=== PATIENT | male | born 2005 | race Caucasian/White ===

== ENCOUNTER 2025-05-21 20:56 | Emergency (ER) | payer OTHER, SELFPAY ==
--- NOTE | ~2025-05-21 | XR_ITS ---
EXAMINATION: XR shoulder LT min 2V, 05/21/2025 22:05 CDT HISTORY: skateboarding accident, shoulder pain COMPARISON: No comparisons available. Findings: No acute fracture or malalignment. No significant degenerative changes. Soft tissues unremarkable. Impression: No acute fracture or malalignment. Reviewed, dictated and finalized at location A. Impression: No acute fracture or malalignment.
--- NOTE | ~2025-05-21 | XR_ITS ---
EXAM/ PROCEDURE: XR elbow LT 2V - 05/21/2025 21:47 CDT HISTORY: 19 years old Male with skateboarding accidnet COMPARISON: None available TECHNIQUE: Three view(s) FINDINGS/ IMPRESSION: Large joint effusion. Mildly displaced acute fracture of the olecranon. No dislocation. Reviewed, dictated and finalized at location N.
--- NOTE | ~2025-05-21 | CT_ITS ---
EXAMINATION: CT elbow LT wo con DATE: 05/21/2025 23:15 INDICATION: Left olecranon fracture. TECHNIQUE: Computed tomography (CT) of the left elbow was performed without intravenous contrast. Automated exposure control and iterative reconstruction technique were employed. The dose-length product was 441.98 mGy-cm. COMPARISON: Left elbow radiographs 05/21/2025 FINDINGS: There is a comminuted fracture of the olecranon of proximal ulna. The main distal fracture fragment demonstrates 11 mm distraction and 30 degrees volar angulation. There is no arthritis. There is a large elbow joint effusion. IMPRESSION: 1. Comminuted fracture of olecranon of proximal ulna. 2. Large elbow joint effusion. Reviewed, dictated and finalized at location E.
--- OUTSIDE RECORDS SUMMARY | 2025-05-21 20:58 | XMS_ITS | Clinical Summary ---
Author Organization [facility] [address] [place] [id number] Care Team Providers Care Science Instructor Name Role Phone Carmelita Barney MD Primary Care Provider [phone] Allergies No known active allergies Medications mupirocin (BACTROBAN) 2 % ointment Apply topically 3 (three) times a day 22 g 01/22/20 23 Active Additional Information Patient not taking.Reported on 12/20/2023 ondansetron ODT (ZOFRAN-ODT) 4 mg disintegrating tabletIndications: Vomiting, unspecified vomiting type, unspecified whether nausea present Take 1 tablet (4 mg total) by mouth every 8 (eight) hours as needed for nausea or vomiting 20 tablet 12/20/19 24 Active Active Problems No known active problems Social History Tobacco Use Types Packs/Day Years Used Date Smoking Tobacco: Never Tobacco Cessation:Counseling Given: Not Answered Personal Safety Answer Date Recorded Getting School Help Needed Not on file 10/29 Sex and Gender Information Value Date Recorded Sex Assigned at Not on file 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 Gender Identity Not on file Sexual Orientation Not on file Obstetrics History Growth Chart Information Age Height Weight Lrzxck-oql-avhl th Percentile BMI Percentile Head Circum Head Circum Percentile Date 18 years 177.8 cm (5' 10) 62.6 kg (138 lb) 20.29%* 2023 17 years 177.8 cm (5' 10) 57.6 kg (127 lb) 8.58%* 2022 17 years 177.8 cm (5' 10) 57.6 kg (127 lb) 8.59%* 2022 * CDC (Boys, 2-20 Years) Last Filed Vital Signs Vital Sign Reading Time Taken Comments Blood Pressure 108/64 12/20/2023 9:17 AM CDT Pulse 72 12/20/2023 9:17 AM CDT Temperature 36.7 C (98 F) 12/20/2023 9:17 AM CDT Respiratory Rate 16 12/20/2023 9:17 AM CDT Oxygen Saturation 99% 12/20/2023 9:17 AM CDT Inhaled Oxygen Concentration - - Weight 62.6 kg (138 lb) 12/20/2023 9:17 AM CDT Height 177.8 cm (5' 10) 12/20/2023 9:17 AM CDT Body Mass Index 19.8 12/20/2023 9:17 AM CDT Body Mass Index Percentile 20.29% 12/20/2023 9:1 7 AM CDT Growth Chart: [facility] [place]Boys, 2-2 0 Years) Plan of Treatment Health Maintenance Due Date Last Done Comments Depression Screening 2005 Hepatitis C Screening 2005 Varicella Vaccines (2 of 2 - 2-dose childhood series) 2009 01/01/2007 DTaP/Tdap/Td Vaccine (5 - Tdap) 2016 06/27/2007, 07/20/2006, 04/20/2006, Additional history exists HPV Vaccines (1 - Male 3-dose series) 2020 Meningococcal B Vaccine (1 of 2 - Standard) 2021 Regular Well Visit/Exam 18-64 12/13/2023 Influenza Vaccine (#1) 2025 Hepatitis B Screening Completed 07/20/2006 , 07/20/2006, 04/20/2006, Additional history exists Pneumococcal vaccine <65 Completed 007, 07/20/2006, 07/20/2006, Additional history exists Meningococcal Vaccine Aged Out No keturah regulo eligible based on patient's age to complete this topic Insurance [facility] Care Teams Science Instructor Relationship Specialty Start Date End Date Carmelita Barney MD [address] [address] PCP - General Pediatrics 01/21/23
[2025-05-21 21:01] VITALS: BP 119/65; PULSE 87; RESP 18; TEMP 36.4; O2SAT 97
[2025-05-21] MEDS: ACETAMINOPHEN 500 MG TABLET 1000 MG PO (22:13)
[2025-05-21] MEDS: IBUPROFEN 600 MG TABLET PO (22:14)
--- NOTE | 2025-05-21 22:35 | ED_ITS ---
HPI - Fall General Chief Complaint: Fall Stated Complaint: L elbow injury Time Seen by Provider: 05/21/25 21:00 Source: patient Mode of arrival: ambulatory Limitations: no limitations History of Present Illness HPI Narrative: Patient is a 19 y/o male who presents to the ED with c/o left elbow pain. Patient reports he was riding his skateboard when he fell onto his left side. Landed mostly on to his left elbow. Denies any head injury or LOC. C/o pain/swelling/limited ROM of L elbow d/t pain. Also reports some pain to left shoulder. Denies neck or back pain. Denies numbness. Related Data Allergies Allergy/AdvReac Type Severity Reaction Status Date / Time No Known Allergies Allergy Mild Verified 05/21/25 21:11 Review of Systems Review of Systems: All systems reviewed & are unremarkable except as noted in HPI. All systems reviewed & are unremarkable except as noted in HPI and below Exam Narrative: GENERAL: Well appearing, well-nourished, non-toxic, in no acute distress. HEAD: Normocephalic, atraumatic. RESPIRATORY: Airway patent, respirations nonlabored. CARDIOVASCULAR: Regular rate and rhythm . Radial pulses strong and easily palpable MUSCULOSKELETAL: Limited ROM of L elbow d/t pain. Significant swelling noted to L elbow/olecranon region with diffuse focal tenderness. No significant tenderness throughout left wrist. Minimal tenderness over left anterior shoulder region/biceps insertion. Sensation intact throughout left upper extremity. Strong social psychologist strength. SKIN: Warm, dry, normal color. NEURO: A&O X3. Speech clear. Cranial nerves II-XII grossly intact. Steady gait. No ataxic movements. PSYCHIATRIC: Appropriate mood and affect. Normal interaction. Course Vital Signs Vital signs: Vital Signs Temperature 97.5 F L 05/21/25 21:01 Pulse Rate 87 05/21/25 21:01 Respiratory Rate 18 05/21/25 21:01 Blood Pressure 119/65 05/21/25 21:01 Pulse Oximetry 97 05/21/25 21:01 Temperature 97.5 F L 05/21/25 21:01 Pulse Rate 87 05/21/25 21:01 Respiratory Rate 18 05/21/25 21:01 Blood Pressure 119/65 05/21/25 21:01 Pulse Oximetry 97 05/21/25 21:01 MDM - Fall MDM Narrative Medical decision making narrative: Large amount of swelling to left elbow. Neurovascularly intact. X-ray of left elbow interpreted by myself with evidence of acute displaced olecranon fracture. Consistent with clinical picture and injury. No obvious radial head fracture. Sent to [facility] for official read. Patient will be placed in a long-arm posterior splint. Given sling. X-ray of L shoulder interpreted by myself without evidence of acute osseous abnormality. Discussed case with Dr. Rae, orthopedics, recommended CT scan of elbow, follow-up in office. Agreed with plan for splint. Patient otherwise safe for discharge home. Advised rice therapy, continue Tylenol/ibuprofen. Mother preferred patient not to receive anything stronger. Discussed strict return precautions. Patient in agreement with plan. Discharged in stable condition. Medical Records Attestation: I reviewed the patient's medical records. Imaging Data Attestation: I personally reviewed and interpreted this imaging study as follows: My impression: XR L elbow: acute displaced olecranon process fx XR L shoulder: no acute osseous abnormality. Radiologist's impression: [facility] CT elbow: Impression: Acute fracture of the left olecranon. There is 6-11 mm of distraction of the fracture. No other acute fracture. No dislocation. Large joint effusion. Discharge Plan Discharge Clinical Impression: Fracture of olecranon process of ulna Qualifiers: Encounter type: initial encounter Fracture type: closed Laterality: left Qualified Code(s): S52.022A - Displaced fracture of olecranon process without intraarticular extension of left ulna, initial encounter for closed fracture Patient Disposition: Home Condition: Stable Instructions: Antibiotic Form, Elbow Fracture (ED), P.R.I.C.E. Treatment (ED) Additional Instructions: You will need to follow up with Orthopedics for further evaluation of fracture. Call office to make appointment. Wear splint until seen by Orthopedics. Recommend Tylenol/Ibuprofen as needed for pain. You can take 1000mg of Tylenol and 600mg of Ibuprofen every 6 hours. Recommend frequent icing to elbow, elevation of arm, sling for comfort and support. Return to the ED if you experience worsening or severe pain, recurrent fall or injury, numbness, or any other symptoms of concern. Patient Language: Setswana Follow-up/Referrals: Joselyn,Annette Zavala, [Primary Care Provider, Unknown] Zia Rae MD [Physician, Orthopedics] Referral Note: ORTHOPEDICS Time of Disposition: 00:25
--- NOTE | 2025-05-21 23:10 | PC.NURSE ---
pt taken to CT in W/C
== END 2025-05-22 00:35 | disposition home or self-care (01) ==
PROVIDERS: Emergency Provider Physician Assistant; PCP Student in an Organized Health Care Education/Training Program
DX: S52.022A Displaced fracture of olecranon process without intraarticular extension of left ulna, initial encounter for closed fracture (principal); V00.131A Fall from skateboard, initial encounter; Y93.51 Activity, roller skating (inline) and skateboarding
CPT/HCPCS: 29105; 73030; 73070; 73200; 99284; A4565; A9270

== ENCOUNTER 2025-05-26 23:16 | Emergency (ER) | payer OTHER, SELFPAY ==
[2025-05-26 23:17] VITALS: BP 130/67; PULSE 76; RESP 18; TEMP 36.4; O2SAT 99
[2025-05-26 23:24] VITALS: RESP 14; O2SAT 98
--- NOTE | 2025-05-27 00:01 | PC.NURSE ---
This RN cut pt ring off.
[2025-05-27 00:12] VITALS: BP 126/69; PULSE 81; RESP 20; O2SAT 100
[2025-05-27 00:14] VITALS: BP 126/69; PULSE 81; RESP 20; O2SAT 100
--- OUTSIDE RECORDS SUMMARY | 2025-05-27 00:16 | XMS_ITS | Clinical Summary ---
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
--- OUTSIDE RECORDS SUMMARY | 2025-05-27 00:17 | XMS_ITS | Encounter Summary ---
Author Organization [facility] Care Team Providers Care Career Development Specialist Name Role Phone Provider, None Primary Care Provider Tracie Cagle APRN, SPRINKLER DRIVER Unavailable [phone] Encounter Details Date Type Department Care Team (Latest Contact Info) Description 05/26/2025 Travel Social History Tobacco Use Types Packs/Day Years Used Date Smoking Tobacco: Every Day Cigarettes 0.3 1.7 Started: 09/04/2023 Smokeless Tobacco: Never Alcohol Use Standard Drinks/Week Comments Never 0 (1 standard drink = 0.6 oz pur e alcohol) PHQ-2 Answer Date Recorded Total Score - Questions 1-9 0 10/2024 Social Connection and Isolation Panel Answer Date Recorded In a typical week, how many times do you talk on the phone with family, friends, or neighbors? Three times a week 05/06/2025 How often do you get togethe r with friends or relatives? More than three times a week 05/06/2025 How often do you attend chur or quaker services? More than 4 times per year 05/06/2025 Do you belong to any clubs o r organizations such as holiness groups, unions, fraternal or athletic groups, or school groups? No 05/06/2025 Attends Club or Organization Meetings Not on leslie e 05/06/2025 Are you , , di vorced, , never , or living with a partner? Never 05/06/2025 AUDIT-C Answer Date Recorded Q1: How often do you have a drink containing alcohol? Never 05/06/2025 Q2: How many drinks containi ng alcohol do you have on a typical day when you are drinking? Patient does not drink Q3: How often do you have si x or more drinks on one occasion? Never 05/06/2025 Overall Financial Resource Strain (CARDIA) Answe r Date Recorded How hard is it for you to pa y for the very basics like food, housing, medical care, and heating? Somewhat hard 05/06/2025 [facility] Occupat ional Health - Occupational Stress Questionnaire Answer Date Recorded Do you feel stress - tense, restless, nervous, or anxious, or unable to sleep at night because your mind is troubled all the time - these days? Only a little 05/06/2025 Exercise Vital Sign Answer Date Recorde d On average, how many days pe r week do you engage in moderate to strenuous exercise (like a brisk walk)? 1 day 05/06/2025 On average, how many minutes do you engage in exercise at this level? 40 min 05/06/2025 Hunger Vital Sign Answer Date Recorded Within the past 12 months, y ou worried that your food would run out before you got the money to buy more. Never true 05/06/20 25 Within the past 12 months, t he food you bought just didn't last and you didn't have money to get more. Never true 05/06/2025 PRAPARE - Transportation Answer Date Re corded In the past 12 months, has l ack of transportation kept you from medical appointments or from getting medications? No 10/2024 In the past 12 months, has l ack of transportation kept you from meetings, work, or from getting things needed for daily living? No 05/06/2025 Housing Stability Vital Sign Answer Jeffrey e Recorded In the last 12 months, was t here a time when you were not able to pay the mortgage or rent on time? No 05/06/2025 In the past 12 months, how m any times have you moved where you were living? 2 05/06/2025 At any time in the past 12 m [facility], were you homeless or living in a nursing home (including now)? No 05/06/2025 [facility] Utilities Answer Date Recorded In the past 12 months has th e electric, gas, oil, or water company threatened to shut off services in your home? No 05/06/2025 Sexually Active Control Partners Comments Not Currently Abstinence, Male Condom Female Sex and Gender Information Value Date Recorded Sex Assigned at Not on file Legal Sex Male 12:35 PM CDT Gender Identity Not on file Sexual Orientation Not on file documented as of this encounter Plan of Treatment Upcoming Encounters Date Type Department Care Team (Latest Contact Info) Description 05/28/2025 10:40 AM CDT Hospital Encounter [facility] [address] [place] [address] Abdirashid Cramer MD [address] [place] [address] 05/28/2025 10:40 AM CDT - 05/28/2025 12:10 PM CDT Surgery [facility] [address] [address] [place] [address] Abdirashid Cramer MD [address] [place] [address] OPEN REDUCTION INTERNAL FIXATION OF THE LEFT OLECRANON FRACTURE, AXILLARY BLOCK, ESPERANZA TITANIUM ELBOW LOCKING PLATES, MINI C-ARM, TALA/ESPERANZA CONF FOR 05/28 AT 1100 - DS 05/2607/14/2025 4:00 PM FIRE INFORMATION OFFICER Office Visit [facility] - Family Medicine - [place] [address] [place] [address] Annette Alves, DO [address] [address] 08/12/2025 1:30 PM FIRE INFORMATION OFFICER Office Visit [facility] - Cardiology - [place] [address] [place] [address] Tracie Elkins APRN, SPRINKLER DRIVER 2 [facility] [address] [place] [address] Scheduled Procedures Name Priority Associated Diagnoses Date/Ti me ORIF OLECRANON LEFT OLECRANON FRACTURE 05/28/2025 10:40 AM CDT documented as of this encounter Visit Diagnoses Not on filedocumented in this encounter Additional Health Concerns Assessment Noted Time PHQ-9 Depression Total Score: 0 05/06/20 3:24 PM CDT documented as of this encounter Care Teams Career Development Specialist Relationship Specialty Start Date End Date Provider, None [place] PCP - General 05/06/25 Tracie Elkins APRN, SPRINKLER DRIVER [address] [address] Nurse Practitioner Cardiology 05/14/25 documented as of this encounter
--- OUTSIDE RECORDS SUMMARY | 2025-05-27 00:17 | XMS_ITS | Clinical Summary ---
Author Organization [facility] Address [address] [place] [address] Phone Care Team Providers Care Blast Furnace Supervisor Name Role Phone Provider, None Primary Care Provider Tracie Cagle APRN, MEDICAL OFFICE SPECIALIST Unavailable +1- [phone] Allergies No known active allergies Medications FLUoxetine (PROzac) 20 MG Capsule Take 20 mg by mouth every evening. 04/15/2025 Active OLANZapine (ZyPREXA) 10 MG Tablet Take 10 mg by mouth nightly. Active acetaminophen (TYLENOL) 500 MG Tablet Take 500 mg by mouth every 4 hours as needed for Moderate or more severe pain. Active MAGNESIUM PO Take by mouth daily. Active Oakman-3 Fatty Acids (OMEGA 3 PO) Take by mouth daily. Active Vitamin D-Vitamin K (D3 + K2 PO) Take by mouth daily. Active IBUPROFEN PO Take by mouth as needed. Active Active Problems No known active problems Encounters Date Type Department Care Team Description 05/26/2025 Travel 05/23/2025 3:00 PM CDT - 05/23/2025 11:59 PM CDT Hospital Encounter [facility] Diagnostic Radiology [address] [place] [address] Abdirashid Cramer MD Discharge Disposition: Discharged to home or Selfcare 05/23/2025 2:00 PM CDT - 05/23/2025 2:59 PM CDT Hospital Encounter [facility] Cardiology Services [address] [place] [address] Abdirashid Cramer MD Discharge Disposition: Discharged to home or Selfcare 05/23/2025 Transcribe Orders [facility] Patient Access Admitting 1 [place] [address] Abdirashid Cramer MD Pain in left elbow (Primary Dx); Pre-operative laboratory examination 05/22/2025 Telephone [facility] Call Center [address] [place] [address] Provider, None Referral 05/21/2025 1:30 PM CDT - 05/21/2025 11:59 PM CDT Hospital Encounter [facility] Cardiology Services [address] [place] [address] Tracie Elkins APRN, CNP Discharge Disposition: Discharged to home or Selfcare 05/21/2025 Travel 05/13/2025 11:00 AM CDT Office Visit [facility] Cardiology [facility] [address] [place] [address] Tracie Elkins APRN, CNP Tachycardia (Primary Dx); Palpitations Discharge Disposition: Discharged to home or Selfcare 05/13/2025 Travel 05/06/2025 2:30 PM CDT Office Visit [facility] Family Medicine [facility] [address] [place] [address] Carina Owusu APRN, CNP Tachycardia (Primary Dx); Mental health-related complaint Discharge Disposition: Discharged to home or Selfcare 05/06/2025 Travel from Last 3 Months Immunizations Immunization Administration Dates Next Due DTAP VACCINE, UNSPECIFIED FORMULATION ,07/20/2006,04/20/2006,2005 Hepatitis A Vaccine,unspecif ied Formulation 03/17/2008,01/01/2007 Hepatitis B Vaccine,unspecif ied Formulation 07/20/2006,04/20/2006,02/13/2006 Hib Vaccine,unspecified Formulation 06/05,07/20/2006,04/20/2006,2005 Influenza,Split Virus,Trivalent,Injectable,PF 05/15/2025(Deferred: Other) MMR Vaccine 01/01/2007 Pneumococcal Vaccine - 13 Valent 007,07/20/2006,04/20/2006,2005 Polio Vaccine,unspecified Formulation ,07/20/2006,04/20/2006,2005 Varicella Vaccine Live 01/01/2007 Family History Medical History Relation Name Comments Hypertension Maternal Grandfather Johan High bl ood pressure/ aortic aneurysm/cause of Rheumatoid Arthritis Maternal Grandmother Larissa Cancer Mother Janie Non malignant b reast cancer Migraines Mother Janie Rashes/Skin Problems Mother Janie Eczema Relation Name Status Comments Father unknown Maternal Grandfather Johan Alive Maternal Grandmother Larissa Alive Mother Janei Alive Social History Tobacco Use Types Packs/Day Years Used Date Smoking Tobacco: Every Day Cigarettes 0.3 1.7 Started: 09/04/2023 Smokeless Tobacco: Never Tobacco Cessation:Ready to Q uit: No; Counseling Given: Yes Alcohol Use Standard Drinks/Week Comments Never 0 [...] How often do you attend chur or jehovah's witness services? More than 4 times per year 05/06/2025 Do you belong to any clubs o r organizations such as jewish groups, unions, fraternal or athletic groups, or [...] medical care, and heating? Somewhat hard 05/06/2025 [facility] of Occupat ional Health - Occupational Stress [...] any time in the past 12 m [facility], were you homeless or living in a m[facility] (including now)? No 05/06/2025 [facility] Utilities Answer Date Recorded In the past [...] on file Sexual Orientation Not on file Last Filed Vital Signs Vital Sign Reading Time Taken Comments Blood Pressure 120/58 05/13/2025 11:00 AM CDT Pulse 73 05/13/2025 11:00 AM CDT Temperature 36.8 C (98.3 F) 05/13/2025 11:00 AM CDT Respiratory Rate 16 05/13/2025 11:00 AM CDT Oxygen Saturation 99% 05/13/2025 11:00 AM CDT Inhaled Oxygen Concentration - - Weight 68.9 kg (152 lb) 05/26/2025 3:29 PM CDT Height 177.8 cm (5' 10) 05/26/2025 3:29 PM CDT Body Mass Index 21.81 05/26/2025 3:29 PM CDT Plan of Treatment Upcoming Encounters Date Type Department Care Team (Latest Contact Info) Description 05/28/2025 10:40 AM CDT Hospital Encounter [facility] Periop 1 [place] [address] Abdirashid Cramer MD [address] [place] [address] 05/28/2025 10:40 AM CDT - 05/28/2025 12:10 PM CDT Surgery [facility] Periop 1 [place] [address] Abdirashid Cramer MD [address] [place] [address] OPEN REDUCTION INTERNAL FIXATION OF THE LEFT OLECRANON FRACTURE, AXILLARY BLOCK, ESPERANZA TITANIUM ELBOW LOCKING PLATES, MINI C-ARM, TALA/ESPERANZA CONF FOR 05/28 AT 1100 - DS 05/2607/14/2025 4:00 PM FINANCIAL SERVICES INTERNSHIP Office Visit [facility] Medical [facility] - Family [facility] [address] [place] [address] Annette Alves, DO [address] [address] 08/12/2025 1:30 PM [employer] INTER[employer] Office Visit [facility] - Cardiology - [place] [address] [place] [address] Tracie Elkins APRN, MEDICAL OFFICE SPECIALIST [address] [place] [address] Scheduled Procedures Name Priority Associated Diagnoses Date/Ti me ORIF OLECRANON LEFT OLECRANON FRACTURE 05/28/2025 10:40 AM CDT Health Maintenance Due Date Last Done Comments Hepatitis C Virus (HCV) Screening 2005 Pneumococcal Immunization Combined (1 of 1 - PPSV23, PCV20, or PCV21) 12/13/2011 06/27/2007, 07/20/2006, 04/20/2006, Additional history exists Human Papillomavirus (HPV) Immunization (1 - Male 3-dose series) 2020 Meningococcal B Immunization (1 of 2 - Standard) 2021 Influenza Immunization (#1) 2025 SARS-COV-2 Immunization (1 - season) 2025 DTaP/Tdap/Td Immunization (6 - Td or Tdap) 02/21/2035 02/21/2025, 06/27/2007, 07/20/2006, Additional history exists Respiratory Syncytial Virus (RSV) Immunization (Adult) (1 - 1-dose 75+ series) 2080 Hepatitis B Immunization Completed 006, 04/20/2006, 02/13/2006 TdaP Immunization Discontinued 02/21/2025 Meningococcal Immunization (ACWY) Aged Out No longer eligible based on patient's age to complete this topic Rotavirus Immunization Aged Out No lo nger eligible based on patient's age to complete this topic Procedures Procedure Name Priority Date/Time Associated Diagnosis Comments XR CHEST 2 VIEWS Routine 05/23/2025 3:10 PM CDT Pain in left elbow Pre-operative laboratory examination CBC WITH AUTO DIFFERENTIAL Today 05/23/2025 3:09 PM CDT Pain in left elbow Pre-operative laboratory examination CMP (COMPREHENSIVE METABOLIC PANEL) Today 05/23/2025 3:09 PM CDT Pain in left elbow Pre-operative laboratory examination COMPLETE BLOOD COUNT (CBC) WITH DIFF Today 05/23/2025 3:09 PM CDT Pain in left elbow Pre-operative laboratory examination EKG 12 LEAD Routine 05/23/2025 2:58 PM CDT Pain in left elbow Pre-operative laboratory examination EKG 12 LEAD Routine 05/13/2025 11:06 AM CDT Tachycardia from Last 3 Months Results * XR CHEST 2 VIEWS (05/23/2025 3:10 PM CDT) Anatomical Region Laterality Modality Chest N/A Digital Radiogra phy 05/23/2025 3:10 PM CDT Impressions 05/23/2025 3:27 PM CDT IMPRESSION: Chest x-ray is within normal limits with no radiographic evidence of acute cardiopulmonary disease. Narrative 05/23/2025 3:27 PM CDT XR CHEST 2 VIEWS : 05/23/2025 3:10 PM DICTATING PHYSICIAN: BHAKTI MANCIA [facility]. HISTORY: Preoperative evaluation. ADDITIONAL TECHNOLOGIST HISTORY: Pain in left elbow, Encounter for preprocedural laboratory examination COMPARISON: None. TECHNIQUE: 2 view radiographs of the chest were obtained. FINDINGS: Cardiomediastinal silhouette: Within normal limits. Pulmonary vascularity: Within normal limits. Lung parenchyma: Lungs are clear. Pleura: No evidence for effusion or pneumothorax. Osseous structures: Regional osseous structures are intact. Support lines and tubes: None. Postoperative changes: None. Procedure Note Bhakti Mancia MD - 05/23/2025 XR CHEST 2 VIEWS : 05/23/2025 3:10 PM DICTATING PHYSICIAN: BHAKTI MANCIA [facility]. HISTORY: Preoperative evaluation. ADDITIONAL TECHNOLOGIST HISTORY: Pain in left elbow, Encounter forpreprocedural laboratory examination COMPARISON: None. TECHNIQUE: 2 view radiographs of the chest were obtained. FINDINGS: Cardiomediastinal silhouette: Within normal limits. Pulmonary vascularity: Within normal limits. Lung parenchyma: Lungs are clear. Pleura: No evidence for effusion or pneumothorax. Osseous structures: Regional osseous structures are intact. Support lines and tubes: None. Postoperative changes: None. IMPRESSION: Chest x-ray is within normal limits with no radiographic evidence of acutecardiopulmonary disease. Abdirashid Cramer MD IMG DIAGNOSTIC ORDERABLES Final Result * (ABNORMAL) CBC WITH AUTO DIFFERENTIAL (05/23/2025 3:09 PM CDT) WBC 7.85 4.00 - 12.00 10(3)/[facility] 05/23/2025 3:45 PM CDT [facility] RBC 4.19(L) 4.40 - 5.80 10(6)/[facility] 05/23/2025 3:45 PM CDT [facility] HEMOGLOBIN (HGB) 13.0 13.0 - 16.5 g/dL 05/23/2025 3:45 PM CDT [facility] HEMATOCRIT (HCT) 38.3 38.0 - 50.0 % 05/23/2025 3:45 PM CDT [facility] MCV 91.4 82.0 - 96.0 fL 05/23/2025 3:45 PM CDT [facility] MCH 31.0 26.0 - 32.0 pg 05/23/2025 3:45 PM CDT [facility] MCHC 33.9 31.0 - 36.0 g/dL 05/23/2025 3:45 PM CDT [facility] PLATELET COUNT 172 140 - 440 10(3)/[facility] 05/23/2025 3:45 PM CDT [facility] RDW 11.7(L) 11.8 - 15.5 % 05/23/2025 3:45 PM CDT [facility] MPV 10.6 8.0 - 12.6 fL 05/23/2025 3:45 PM CDT [facility] NEUTROPHILS 70.9(H) 40.0 - 68.0 % 05/23/2025 3:45 PM CDT [facility] LYMPHOCYTES 19.2 19.0 - 49.0 % 05/23/2025 3:45 PM CDT [facility] MONOCYTES 6.8 3.0 - 13.0 % 05/23/2025 3:45 PM CDT [facility] EOSINOPHILS 2.2 0.0 - 8.0 % 05/23/2025 3:45 PM CDT [facility] BASOPHILS 0.5 0.0 - 1.0 % 05/23/2025 3:45 PM CDT [facility] IMMATURE GRANULOCYTE 0.4 0.0 - 0.4 % 05/23/2025 3:45 PM CDT [facility] ABSOLUTE NEUTROPHILS 5.57(H) 1.40 - 5.30 10(3)/[facility] 05/23/2025 3:45 PM CDT [facility] ABSOLUTE LYMPHOCYTES 1.51 0.90 - 3.30 10(3)/[facility] 05/23/2025 3:45 PM CDT [facility] ABSOLUTE MONOCYTES 0.53 0.10 - 0.90 10(3)/[facility] 05/23/2025 3:45 PM CDT [facility] ABSOLUTE EOSINOPHIL 0.17 0.00 - 0.50 10(3)/[facility] 05/23/2025 3:45 PM CDT [facility] ABSOLUTE BASOPHILS 0.04 0.00 - 0.10 10(3)/[facility] 05/23/2025 3:45 PM CDT [facility] ABSOLUTE IMMATURE GRANULOCYTE 0.03 0.00 - 0.03 10 (3) [facility] 05/23/2025 3:45 PM CDT [facility] NRBC PER 100 WBC 0 05/23/20 3:45 PM CDT [facility] Blood Venipuncture / Unknown 05/23/2025 3:09 PM CDT 05/23/2025 3:40 PM CDT us Abdirashid Cramer MD HEMATOLOGY ORDERABLES Final Resu lt [facility] [address] [place] [address] * (ABNORMAL) CMP (COMPREHENSIVE METABOLIC PANEL) (05/23/2025 3:09 PM CDT) SODIUM 140 136 - 145 mmol/L 05/23/2025 4:07 PM CDT [facility] POTASSIUM 4.0 3.5 - 5.1 mmol/L 05/23/2025 4:07 PM CDT [facility] CHLORIDE 106 98 - 107 mmol/L 05/23/2025 4:07 PM CDT [facility] CO2, VENOUS 28 22 - 30 mmol/L 05/23/2025 4:07 PM CDT [facility] ANION GAP 10.0 <18.0 mmol/L 05/23/2025 4:07 PM CDT [facility] GLUCOSE 89 70 - 99 mg/dL 05/23/2025 4:07 PM CDT [facility] BUN 11 9 - 21 mg/dL 05/23/2025 4:07 PM CDT [facility] CREATININE, BLOOD 0.71 0.70 - 1.30 mg/dL 05/23/2025 4:07 PM CDT [facility] BUN/CREATININE RATIO 15 12 - 20 ratio 05/23/2025 4:07 PM CDT [facility] TOTAL PROTEIN 6.3 6.0 - 8.0 g/dL 05/23/2025 4:07 PM CDT [facility] ALBUMIN 4.4 3.5 - 5.0 g/dL 05/23/2025 4:07 PM CDT [facility] A/G RATIO 2.3(H) 1.0 - 2.2 05/23/2025 4:07 PM CDT [facility] CALCIUM 8.8 8.7 - 10.5 mg/dL 05/23/2025 4:07 PM CDT [facility] T BILI 0.5 0.2 - 1.2 mg/dL 05/23/2025 4:07 PM CDT [facility] SGOT (AST) 20 <43 U/L 05/23/2025 4:07 PM CDT [facility] SGPT (ALT) 29 <56 U/L 05/23/2025 4:07 PM CDT [facility] ALKALINE PHOSPHATASE 57 <750 U/L 05/23/2025 4:07 PM CDT [facility] IS THE PATIENT REQUIRED TO BE FASTING? No 05/23/2025 4:07 PM CDT [facility] GFR, ESTIMATED >60 >=60 05/23/2025 4:07 PM CDT [facility] Comment: Creatinine Clearance is the preferred criteria for selecting drug dose adjustments in renally impaired patients. The GFR is provided as additional pertinent clinical information. GFR is reported in mL/min/1.73 sq m. Calculation based on the 2020 Chronic Kidney Disease Epidemiology Collaboration (CKD-EPI) equation refit without adjustment for race. UNABLE TO CALCULATE GFR, EST. 025 4:07 PM T [facility] Comment: Creatinine Clearance is the preferred criteria for selecting drug dose adjustments in renally impaired patients. The GFR is provided as additional pertinent clinical information. GFR is reported in mL/min/1.73 sq m. Calculation based on the 2009 Chronic Kidney Disease Epidemiology Collaboration (CKD-EPI). GFR, EST. NONAFRICAN 05/23/2025 4:07 PM T [facility] Comment: Creatinine Clearance is the preferred criteria for selecting drug dose adjustments in renally impaired patients. The GFR is provided as additional pertinent clinical information. GFR is reported in mL/min/1.73 sq m. Calculation based on the 2009 Chronic Kidney Disease Epidemiology Collaboration (CKD-EPI). Blood Venipuncture / Unknown 05/23/2025 3:09 PM CDT 05/23/2025 3:39 PM CDT us Abdirashid Cramer MD CHEMISTRY ORDERABLES Final Resul t [facility] [address] [place] [address] * EKG 12 LEAD (05/23/2025 2:58 PM CDT) Only the most recent of2 resultswithin the time period is included. Ventricular Rate 72 BPM EXTERNAL EKG Atrial Rate 72 BPM EXTERNAL EKG P-R Interval 134 ms EXTERNAL EKG QRS Duration 82 ms EXTERNAL EKG Q-T Duration 356 ms EXTERNAL EKG QTC CALCULATION 389 ms EXTERNAL EKG P [place] 55 degrees EXTERNAL EKG R [place] 77 degrees EXTERNAL EKG T [place] 63 degrees EXTERNAL EKG 05/23/2025 2:58 PM CDT Impressions EXTERNAL EKG - 05/25/2025 9:39 PM CDT Normal sinus rhythm Normal ECG No previous ECGs available Confirmed by Dora Hastings ([id number]) on 05/25/2025 9:39:30 PM Narrative Procedure Note Dora Hastings MD - 05/25/2025 IMPRESSION: Normal sinus rhythm Normal ECG No previous ECGs available Confirmed by Dora Hastings ([id number]) on 05/25/2025 9:39:30 PM Abdirashid Cramer MD IMG ECG ORDERABLES Final Result EXTERNAL EKG from Last 3 Months Insurance MEDICAID [place] Member Subscriber Plan / Payer (Ef fective 2018-Present) Name:Jama Frias Relation to Subscriber:Self Name:Jama Frias Payer ID:[id number] (NAIC) Type:Not on file Address: [place] [phone] Advance Directives Documents on File Type Date Recorded Patient Bottom Scrubber Expl anation Power of [place] for Health Care 05/06/2025 4:21 PM POA Care Teams Blast Furnace Supervisor Relationship Specialty Start Date End Date Provider, None [place] PCP - General 05/06/25 Tracie Elkins APRN, MEDICAL OFFICE SPECIALIST [address] [facility] [address] [place] [address] Nurse Practitioner Cardiology 05/14/25
--- OUTSIDE RECORDS SUMMARY | 2025-05-27 00:17 | XMS_ITS | Encounter Summary ---
Author Organization [facility] Address [address] [place] [address] Phone Care Team Providers Care Refrigerated Company Driver Name Role Phone Provider, None Primary Care Provider Tracie Cagle APRN, CNP Unavailable +1- [phone] Reason for Referral * Consult, Test & Initiate Treatment (Routine) - Canceled Specialty Diagnoses / Procedures Referred By Sayda andrew Referred To Contact Diagnoses Closed nondisplaced fracture of olecranon process of left ulna without intra-articular extension, initial encounter Carina Owusu APRN, CNP [address] [address] Phone: tel: fax: [facility] Medical [facility] - Orthopedic Surgery [facility] [address] [place] [address] Phone: tel: fax: Referral ID Status Reason Start Date Expiration Date V isits Requested Visits Authorized [id number] Canceled 05/23/2025 1 1 Scheduling Instructions Jama is being referred for fracture. Please contact patient for scheduling questions or concerns. Reason for Visit * Reason Onset Date Comments Referral 05/22/2025 Encounter Details Date Type Department Care Team (Late st Contact Info) Description 05/22/2025 Telephone [facility] Call Center [address] [place] [address] Provider, None [place] Referral Social History Tobacco Use Types Packs/Day Years [...] week 05/06/2025 How often do you attend [facility] or rastafarian services? More than 4 times per year 05/06/2025 Do you belong to any clubs o r organizations such as bahai groups, unions, fraternal or athletic groups, or [...] medical care, and heating? Somewhat hard 05/06/2025 [facility] of Occupat ional Health - Occupational Stress [...] any time in the past 12 m [facility], were you homeless or living in a fci (including now)? No 05/06/2025 [facility] Utilities Answer Date Recorded In the [...] on file documented as of this encounter Miscellaneous Notes * Telephone Encounter - Sherice Chávez RN - 05/26/2025 2:09 PM CDT Patient has been seen by another inventory specialist. * Telephone Encounter - Carina Owusu APRN, CNP - 05/23/2025 3:25 PM CDT Referral signed * Telephone Encounter - Sherice Chávez RN - 05/23/2025 3:11 PM CDT Left message for patient to return call to office to schedule appointment with Dr. Abbott. Requested orthopedic referral from patient's PCP office. * Telephone Encounter - Carina Owusu APRN, CNP - 05/22/2025 2:29 PM CDT Can we check in their office to see if they can get him in soon? * Telephone Encounter - Madhavi Richardson RN - 05/22/2025 10:11 AM CDT Situation: Patient mother is requesting a referral to (speciality) Orthopedics Ulnar fracture diagnosed in Emergency Department 05/21/25 from injury. Patient supposed to follow up with orthopedics, and in need of [facility] Referral, per patientmother, he is supposed to be seen as soon possible with ortho per patient mother. Background: Referral requested for Ulnar Fracture. Patient mother contacting PCP office. No personal accounting representative designee form on file. Action: Name and location of patient's preferred specialty provider: [facility] Patient been seen by this speciality in the past? No Recommendation: Referral request routed to provider for review. Contacter has been given the referral center information to call and check status of referral once the order has been signed. Non-[facility] Region: Monday- Monday 8am-4:30pm, option 7 documented in this encounter Plan of Treatment Upcoming Encounters Date Type Department Care Team (Latest Contact Info) Description 05/28/2025 10:40 AM CDT Hospital Encounter [facility] Periop [address] [place] [address] Abdirashid Cramer MD [address] [place] [address] 05/28/2025 10:40 AM CDT - 05/28/2025 12:10 PM CDT Surgery [facility] Periop [address] [place] [address] Abdirashid Cramer MD [address] [place] [address] OPEN REDUCTION INTERNAL FIXATION OF THE LEFT OLECRANON FRACTURE, AXILLARY BLOCK, ESPERANZA TITANIUM ELBOW LOCKING PLATES, MINI C-ARM, TALA/ESPERANZA CONF FOR 05/28 AT 1100 - DS 05/2607/14/2025 4:00 PM POSTPARTUM NURSE Office Visit [facility] Medical [facility] - Family Medicine - [place] [address] [place] [address] Annette Alves, DO 2 [facility] [address] [place] [address] 08/12/2025 1:30 PM POSTPARTUM NURSE Office Visit [facility] - Cardiology - [place] [address] [place] [address] Tracie Elkins APRN, PLANT OPERATOR 2 [facility] [address] [place] [address] Scheduled Procedures Name Priority Associated Diagnoses Date/Ti me ORIF OLECRANON LEFT OLECRANON FRACTURE 05/28/2025 10:40 AM CDT Scheduled Referrals Name Type Priority Associated Diagnoses Orde r Schedule ORTHOPEDIC SURGERY REFERRAL Outpatient Referral Routine Closed nondisplaced fracture of olecranon process of left ulna without intra-articular extension, initial encounter Expected: 05/23/2025, Expires: 05/23/2026 documented as of this encounter Visit Diagnoses Diagnosis Closed nondisplaced fracture of olecranon process of left ulna without intra-articular extension, initial encounter- Primary documented in this encounter Additional Health Concerns Assessment Noted Time PHQ-9 Depression Total Score: 0 05/06/20 3:24 PM CDT documented as of this encounter Care Teams Refrigerated Company Driver Relationship Specialty Start Date End Date Provider, None [place] PCP - General 05/06/25 Tracie Elkins, RESTAURANT CULINARY MANAGER, PLANT OPERATOR [address] [address] Nurse Practitioner Cardiology 05/14/25 documented as of this encounter
--- NOTE | 2025-05-27 06:15 | ED_ITS ---
HPI - General Adult General Chief complaint: Unspecified Stated complaint: ring stuck on finger Time Seen by Provider: 05/26/25 23:55 History of Present Illness HPI narrative: Patient presents here due to ring being stuck on his finger. He did break his left arm and scheduled for surgery. Related Data Allergies Allergy/AdvReac Type Severity Reaction Status Date / Time No Known Allergies Allergy Mild Verified 05/27/25 00:14 Review of Systems Review of Systems: All systems reviewed & are unremarkable except as noted in HPI and below Exam Narrative: EXAMINATION OF ORGAN SYSTEMS/BODY AREAS: Constitutional: Vital signs per nursing GENERAL:[No acute distress, non-toxic appearing.] SKIN: Slight red marking middle finger HEART: Good cap refill PSYCH: Normal affect Course Vital Signs Vital signs: Vital Signs Temperature 97.6 F 05/26/25 23:17 Pulse Rate 76 05/26/25 23:17 Respiratory Rate 18 05/26/25 23:17 Blood Pressure 130/67 05/26/25 23:17 Pulse Oximetry 99 05/26/25 23:17 Oxygen Delivery Room Air 05/26/25 23:17 Temperature 97.6 F 05/26/25 23:17 Pulse Rate 81 05/27/25 00:14 Respiratory Rate 20 05/27/25 00:14 Blood Pressure 126/69 05/27/25 00:14 Pulse Oximetry 100 05/27/25 00:14 Oxygen Delivery Room Air 05/26/25 23:17 Medical Decision Making [facility] Narrative Medical decision making narrative: Patient presents after ring stuck on finger, the [facility] ER nurses were able to snap the ring and release his finger. He tolerated this well, symptoms resolved, counseled to stop putting any rings on his finger especially given the broken arm and requisite surgery that is about to happen. Stable for discharge Vital Signs Vital Signs: Vital Signs Temperature 97.6 F 05/26/25 23:17 Pulse Rate 76 05/26/25 23:17 Respiratory Rate 18 05/26/25 23:17 Blood Pressure 130/67 05/26/25 23:17 Pulse Oximetry 99 05/26/25 23:17 Oxygen Delivery Room Air 05/26/25 23:17 Temperature 97.6 F 05/26/25 23:17 Pulse Rate 81 05/27/25 00:14 Respiratory Rate 20 05/27/25 00:14 Blood Pressure 126/69 05/27/25 00:14 Pulse Oximetry 100 05/27/25 00:14 Oxygen Delivery Room Air 05/26/25 23:17 Discharge Plan Discharge Clinical Impression: External constriction of finger Patient Disposition: Home Condition: Stable Additional Instructions: While your arm is recovering, please do not wear any rings on your fingers. Patient Language: Romanian Follow-up/Referrals: Joselyn,Annette Zavala DO [Primary Care Provider, Unknown]
== END 2025-05-27 00:16 | disposition home or self-care (01) ==
PROVIDERS: Emergency Provider Emergency Medicine; PCP Student in an Organized Health Care Education/Training Program
DX: S60.443A External constriction of left middle finger, initial encounter (principal); W49.04XA Ring or other jewelry causing external constriction, initial encounter
CPT/HCPCS: 99282

== ENCOUNTER 2025-06-12 16:12 | Emergency (ER) | payer OTHER, SELFPAY ==
[2025-06-12] VITALS (11 sets, daily range): BP systolic 121–138; BP diastolic 69–85; PULSE 74–117; RESP 15–27; TEMP 36.4–36.6; O2SAT 92–100
--- NOTE | ~2025-06-12 | XR_ITS ---
EXAMINATION: XR chest 2V DATE: 06/12/2025 18:40 INDICATION: Cardiac arrhythmia TECHNIQUE: PA and lateral views of the chest were obtained. COMPARISON: None FINDINGS: The lungs are clear with no focal airspace opacities, pulmonary edema, pleural effusion or pneumothorax. The cardiomediastinal silhouette is normal. Visualized bones and soft tissues are unremarkable. Electronic device external to the patient positioned anterior to the sternum. IMPRESSION: 1. No acute cardiopulmonary disease. Reviewed, dictated and finalized at location A.
--- NOTE | 2025-06-12 16:25 | ECG_ITS ---
Test Date: 2025-06-12 16:31:42 Measurements Intervals [place] Rate: 116 P: 49 IN: 127 QRS: 47 QRSD: 75 T: 46 QT: 289 QTc: 402 Interpretive Statements SINUS TACHYCARDIA BASELINE WANDER- II, III, AVF ABNORMAL ECG No previous ECG available for comparison Electronically Signed On 06-12-2025 18:38:28 CDT by Camden Jarvis D.O.
--- NOTE | 2025-06-12 18:41 | ED_ITS ---
HPI - Arrhythmia/Palpitations General Chief Complaint: Arrhythmia/Palpitations Stated Complaint: Reaction to unknown drug smoked Time Seen by Provider: 06/12/25 17:11 History of Present Illness HPI narrative: Patient is a 19-year-old male who presents to the ER with chest palpitations. Upon time of examination he reports he feels ?fine. Patient's mother is concerned because earlier today he picked a weed oil cartridge off the ground and smoked it. His mother reports she has a pulse oximeter at home, placed in on patient and noticed his heart rate was in the 150s. Patient's mother reports he took mushrooms approximately 1 month ago, which sent him into tachycardia (180s). He is been on a Holter monitor since May 21, 2025. Patient's mother reports he pulled off his Holter monitor earlier today. He denies using any illicit drugs besides marijuana. Patient was seen here recently for evaluation of broken arm. He denies any other medical history relevant to this ER visit. Patient denies shortness of breath, recent fevers, abdominal pain, or acute back pain. Related Data Allergies Allergy/AdvReac Type Severity Reaction Status Date / Time No Known Allergies Allergy Mild Verified 06/12/25 16:13 Review of Systems 2 Review of Systems: All systems reviewed & are unremarkable except as noted in HPI and below Exam 2 Narrative: GENERAL: Well appearing, poorly nourished, non-toxic, in no acute distress. HEAD: Normocephalic, atraumatic. NECK: Supple. No adenopathy, no masses. RESPIRATORY: Airway patent, respirations nonlabored. Clear to auscultation bilaterally, no rales, rhonchi, wheezing. CARDIOVASCULAR: Irregular rate and rhythm without murmurs, rubs, or gallops. Peripheral pulses 2+ and equal bilaterally. ABDOMINAL: Soft, nontender, nondistended, no hepatosplenomegaly. Normoactive BS. MUSCULOSKELETAL: Moves all extremities. Strength/ROM intact without gross deformities. SKIN: Warm, dry, normal color. No rashes. NEURO: A&O X3. Speech clear. Cranial nerves II-XII intact. No ataxic movements. PSYCHIATRIC: Flat affect but laughs out inappropriately at time. Course Vital Signs Vital signs: Vital Signs Temperature 36.4 C 06/12/25 16:16 Pulse Rate 117 H 06/12/25 16:16 Respiratory Rate 20 06/12/25 16:16 Blood Pressure 138/85 06/12/25 16:16 Pulse Oximetry 92 06/12/25 16:16 Oxygen Delivery Room Air 06/12/25 16:16 Temperature 36.6 C 06/12/25 17:01 Pulse Rate 74 06/12/25 19:31 Respiratory Rate 21 H 06/12/25 19:31 Blood Pressure 134/80 06/12/25 19:31 Pulse Oximetry 99 06/12/25 19:17 Oxygen Delivery Room Air 06/12/25 17:01 MDM - Arrhythmia/Palpitations MDM Narrative Medical decision making narrative: Patient is a 19-year-old male who presents to the ER with chest palpitations. Upon time of examination he reports he feels ?fine. Patient's mother is concerned because earlier today he picked a weed oil cartridge off the ground and smoked it. His mother reports she has a pulse oximeter at home, placed in on patient and noticed his heart rate was in the 150s. Patient's mother reports he took mushrooms approximately 1 month ago, which sent him into tachycardia (180s). He is been on a Holter monitor since May 21, 2025. Patient's mother reports he pulled off his Holter monitor earlier today. He denies using any illicit drugs besides marijuana. Patient was seen here recently for evaluation of broken arm. He denies any other medical history relevant to this ER visit. Patient denies shortness of breath, recent fevers, abdominal pain, or acute back pain. Labs Ordered: CBC, CMP, UDS, UA, PTT, INR, troponin, proBNP, lipase Imaging Ordered: Chest x-ray Medications Ordered: Zyprexa p.o. 10 mg (pt's home medication), Prozac p.o. 10mg (pt's home medication) Results: Patient's chest x-ray indicates no acute cardiopulmonary abnormalities. Diagnosis: Heart palpitations, reaction to drugs Risks: HEART score: low risk HEART Score for Major Cardiac Events from [email or web address] on 06/12/2025 All calculations should be rechecked by clinician prior to use RESULT SUMMARY: 3 points Low Score (0-3 points) Risk of MACE of 0.9-1.7%. INPUTS: History ?> 2 = Highly suspicious EKG ?> 0 = Normal Age ?> 0 = <45 Risk factors ?> 1 = 1-2 risk factors Initial troponin ?> 0 = <Normal limit Consults: cardiology (already established outpatient) Patient Education/Shared MDM: Results of lab work and imaging shared with patient and his family. He reports he has not had any heart palpitations since coming to the ER.. Patient strongly advised to maintain hydration status upon discharge and follow-up with his perennial house manager as soon as possible. He will not be discharged home with any new prescriptions. Strict return precautions provided. Patient verbalized understanding and is in agreement with plan. Vital signs stable at time of discharge. All questions answered. Differential Diagnosis Differential diagnosis: Likely palpitations, anxiety and sinus tachycardia Lab Data Attestation: I reviewed the patient's lab results. 06/12/25 18:45 06/12/25 18:45 Labs: Lab Results 06/12/25 06/12/25 06/12/25 Range/Units 18:45 18:45 20:28 WBC 9.0 (4.5-10.0) K/mm3 RBC 4.59 L (4.6-6.20) M/mm3 Hgb 14.0 (14.0-18.0) g/dL Hct 40.6 L (42.0-52.0) % MCV 88.5 (80-100) fl MCH 30.5 (26-34) pg MCHC 34.5 (32-36) g/dl RDW 12.1 (11.5-14.5) % Plt Count 264 (150-375) k/mm3 MPV 9.3 (7.4-10.4) fl Immature Gran % (Auto) 0.4 (0-0.5) % Neut % (Auto) 74.7 H (45.5-73.1) % Lymph % (Auto) 17.4 L (18.3-44.2) % [place] % (Auto) 6.1 (2.6-8.5) % Eos % (Auto) 1.0 (0-4.4) % Baso % (Auto) 0.4 (0.2-1.2) % Lymph # (Auto) 1.57 (0.9-3.2) K/mm3 [place] # (Auto) 0.6 (0.1-0.6) K/mm3 Eos # (Auto) 0.1 (0-0.3) K/mm3 Baso # (Auto) 0.0 (0.0-0.1) K/mm3 Abs Immat Gran (auto) 0.04 H (0.00-0.031) K/mm3 Absolute Neuts (auto) 6.7 (1.3-6.7) K/mm3 Absolute Nucleated RBC 0.000 (0.0-0.012) K/mm3 Nucleated RBC % 0.0 (0.0-0.2) % PT 14.3 (11.1-14.7) Seconds INR 1.1 APTT 28.4 (22.3-36.8) Seconds D-Dimer 0.35 Cancelled (<0.48) ug/mL Sodium 138 (134-143) mmol/L Potassium 4.2 (3.4-5.0) mmol/L Chloride 103 (98-107) mmol/L Carbon Dioxide 27 (22-30) mmol/L Anion Gap 8 (4-12) mmol/L BUN 15 (8-21) mg/dL Creatinine 0.80 (0.7-1.3) mg/dL Estim Creat Clear Calc 126 ml/min Estimated GFR > 60 (59 - ) Glucose 101 (65-110) mg/dL Calcium 9.4 (8.9-10.7) mg/dL Total Bilirubin 0.6 (0.2-1.3) mg/dL AST 27 (17-59) U/L ALT 29 (6-50) U/L Alkaline Phosphatase 91 (58-237) U/L Troponin I < 0.012 (0.000-0.034) ng/mL NT-Pro-B Natriuret Pep < 20 (19.9-100) pg/mL Total Protein 7.6 (6.3-8.6) g/dL Albumin 5.0 (3.7-5.6) g/dL Lipase 31 (23-300) U/L Urine Color Yellow (Yellow) Urine Appearance Clear (Clear) Urine pH 8.5 (5.0-9.0) Ur Specific [place] 1.023 (1.001-1.035) Urine Protein Trace (Negative) mg/dL Urine Glucose (UA) Negative (Negative) mg/dL Urine Ketones Negative (Negative) mg/dL Ur Blood (Man) Negative (Negative) Urine Nitrate Negative (Negative) Urine Bilirubin Negative (Negative) Urine Urobilinogen 0.2 (<2.0) mg/dL Leukocyte Esterase Rfl Negative (Negative) REYNALDO/UL Urine RBC 0-2 (0-2) /hpf Urine WBC 0-5 (0-3) /hpf Ur Squamous Epith Cells None seen (Few) /hpf Urine Bacteria None seen /hpf Urine Casts 0-2 Urine Opiates Screen Negative (Negative) Urine Methadone Screen Negative (Negative) Ur Barbiturates Screen Negative (Negative) Ur Phencyclidine Scrn Negative (Negative) Ur Amphetamine Screen Negative (Negative) U Benzodiazepines Scrn Negative (Negative) Urine Cocaine Screen Negative (Negative) U Cannabinoids Screen Positive A (Negative) 06/12/25 Range/Units 21:33 WBC (4.5-10.0) K/mm3 RBC (4.6-6.20) M/mm3 Hgb (14.0-18.0) g/dL Hct (42.0-52.0) % MCV (80-100) fl MCH (26-34) pg MCHC (32-36) g/dl RDW (11.5-14.5) % Plt Count (150-375) k/mm3 MPV (7.4-10.4) fl Immature Gran % (Auto) (0-0.5) % Neut % (Auto) (45.5-73.1) % Lymph % (Auto) (18.3-44.2) % [place] % (Auto) (2.6-8.5) % Eos % (Auto) (0-4.4) % Baso % (Auto) (0.2-1.2) % Lymph # (Auto) (0.9-3.2) K/mm3 [place] # (Auto) (0.1-0.6) K/mm3 Eos # (Auto) (0-0.3) K/mm3 Baso # (Auto) (0.0-0.1) K/mm3 Abs Immat Gran (auto) (0.00-0.031) K/mm3 Absolute Neuts (auto) (1.3-6.7) K/mm3 Absolute Nucleated RBC (0.0-0.012) K/mm3 Nucleated RBC % (0.0-0.2) % PT (11.1-14.7) Seconds INR APTT (22.3-36.8) Seconds D-Dimer (<0.48) ug/mL Sodium (134-143) mmol/L Potassium (3.4-5.0) mmol/L Chloride (98-107) mmol/L Carbon Dioxide (22-30) mmol/L Anion Gap (4-12) mmol/L BUN (8-21) mg/dL Creatinine (0.7-1.3) mg/dL Estim Creat Clear Calc ml/min Estimated GFR (59 - ) Glucose (65-110) mg/dL Calcium (8.9-10.7) mg/dL Total Bilirubin (0.2-1.3) mg/dL AST (17-59) U/L ALT (6-50) U/L Alkaline Phosphatase (58-237) U/L Troponin I < 0.012 (0.000-0.034) ng/mL NT-Pro-B Natriuret Pep (19.9-100) pg/mL Total Protein (6.3-8.6) g/dL Albumin (3.7-5.6) g/dL Lipase (23-300) U/L Urine Color (Yellow) Urine Appearance (Clear) Urine pH (5.0-9.0) Ur Specific [place] (1.001-1.035) Urine Protein (Negative) mg/dL Urine Glucose (UA) (Negative) mg/dL Urine Ketones (Negative) mg/dL Ur Blood (Man) (Negative) Urine Nitrate (Negative) Urine Bilirubin (Negative) Urine Urobilinogen (<2.0) mg/dL Leukocyte Esterase Rfl (Negative) REYNALDO/UL Urine RBC (0-2) /hpf Urine WBC (0-3) /hpf Ur Squamous Epith Cells (Few) /hpf Urine Bacteria /hpf Urine Casts Urine Opiates Screen (Negative) Urine Methadone Screen (Negative) Ur Barbiturates Screen (Negative) Ur Phencyclidine Scrn (Negative) Ur Amphetamine Screen (Negative) U Benzodiazepines Scrn (Negative) Urine Cocaine Screen (Negative) U Cannabinoids Screen (Negative) Imaging Data Attestation: I personally reviewed and interpreted this imaging study as follows: Radiologist's impression: Impressions Chest X-Ray 06/12/25 19:45 IMPRESSION: 1. No acute cardiopulmonary disease. Discharge Plan Discharge Clinical Impression: Palpitations, Adverse effect of cannabis Patient Disposition: Home Condition: Stable Instructions: Antibiotic Form Additional Instructions: Please return to the ER with any worsening symptoms. Follow-up with your perennial house manager as soon as possible. Take all medications as prescribed, including regularly scheduled medications. Patient Language: Polish Follow-up/Referrals: Joselyn,Annette Zavala, DO [Primary Care Provider, Unknown] Stand Alone Forms: Work/School Release IP Time of Disposition: 22:23
[2025-06-12 18:51] LABS: Hematocrit 40.6 % (42.0-52.0); Hemoglobin 14.0 g/dL (14.0-18.0); Immature Granulocyte Percent A 0.4 % (0-0.5); Lymphocytes Absolute Auto 1.57 K/mm3 (0.9-3.2); Mean Corpuscular HGB Conc 34.5 g/dl (32-36); Mean Corpuscular Hemoglobin 30.5 pg (26-34); Mean Corpuscular Volume 88.5 fl (80-100); Nucleated Red Blood Cells Absolute Auto 0.000 K/mm3 (0.0-0.012); Nucleated Red Blood Cells Perc 0.0 % (0.0-0.2); Platelet Count Result 264 k/mm3 (150-375); Red Blood Count 4.59 M/mm3 (4.6-6.20); White Blood Count 9.0 K/mm3 (4.5-10.0)
[2025-06-12 19:02] LABS: INR 1.1; Prothrombin Time 14.3 Seconds (11.1-14.7)
[2025-06-12 19:03] LABS: Alanine Aminotransferase 29 U/L (6-50); Albumin Level 5.0 g/dL (3.7-5.6); Alkaline Phosphatase 91 U/L (58-237); Anion Gap 8 mmol/L (4-12); Aspartate Amino Transferase 27 U/L (17-59); Bilirubin,Total 0.6 mg/dL (0.2-1.3); Blood Urea Nitrogen 15 mg/dL (8-21); Calcium 9.4 mg/dL (8.9-10.7); Carbon Dioxide 27 mmol/L (22-30); Chloride 103 mmol/L (98-107); Estimated CRCL calculation 126 ml/min; Estimated Glomerular Filt Rate > 60; Glucose 101 mg/dL (65-110); Lipase 31 U/L (23-300); Partial Thromboplastin Time 28.4 Seconds (22.3-36.8); Potassium 4.2 mmol/L (3.4-5.0); Sodium 138 mmol/L (134-143); Total Protein 7.6 g/dL (6.3-8.6)
[2025-06-12 19:12] LABS: NT Pro B Type Natriuretic Pept < 20 pg/mL (19.9-100)
[2025-06-12 19:13] LABS: Troponin I < 0.012 ng/mL (0.000-0.034)
[2025-06-12 20:38] LABS: Add Urine Microscopic? YES; Appearance Urine Clear (Clear); Glucose Urine UA Negative (Negative); Leukocyte Esterase Ur Negative LEU/UL (Negative); Nitrate Urine Negative (Negative); Non Pathogenic Casts 0-2; Specific Grav Ur 1.023 (1.001-1.035)
[2025-06-12 20:53] LABS: Cannabinoid Screen Urine Positive (Negative)
--- NOTE | 2025-06-12 21:45 | ECG_ITS ---
Test Date: 2025-06-12 21:23:24 Measurements Intervals [place] Rate: 69 P: 12 HI: 148 QRS: 48 QRSD: 87 T: 41 QT: 356 QTc: 381 Interpretive Statements SINUS RHYTHM PEAKED T WAVES- CONSIDER HYPERKALEMIA BASELINE ARTIFACT- I, III, AVL, V4-V5 ABNORMAL ECG Compared to ECG 06/12/2025 16:31:42 HEART RATE HAS DECREASED PEAKED T WAVES NOW PRESENT Electronically Signed On 06-13-2025 06:13:05 CDT by Camden Jarvis D.O.
[2025-06-12 22:04] LABS: Troponin I < 0.012 ng/mL (0.000-0.034)
== END 2025-06-12 23:34 | disposition home or self-care (01) ==
PROVIDERS: Emergency Provider Registered Nurse; PCP Student in an Organized Health Care Education/Training Program
DX: T40.711A Poisoning by cannabis, accidental (unintentional), initial encounter (principal); R00.2 Palpitations; R00.0 Tachycardia, unspecified; R94.31 Abnormal electrocardiogram [ECG] [EKG]
CPT/HCPCS: 36415; 71046; 80053; 80307; 81001; 83690; 83880; 84484; 85025; 85380; 85610; 85730; 93005; 99284; A9270

== ENCOUNTER 2025-06-20 18:07 | Emergency (ER) | payer OTHER, SELFPAY ==
--- OUTSIDE RECORDS SUMMARY | 2025-06-19 15:00 | XMS_ITS | Encounter Summary ---
Author Organization [facility] Address [address] [place] [address] Phone Care Team Providers Care Day Worker Name Role Phone Tracie Elkins APRN, ASSOCIATE PROGRAM MANAGER Unavailable [phone] Annette Alves DO Primary Care Provider [phone] Reason for Visit * Reason Comments ED Follow-up Er f/u for tachycard ia and at [facility] for over dose of over the counter medication Encounter Details Date Type Department Care Team (Late st Contact Info) Description 06/19/2025 3:00 PM CDT [facility] Visit [facility] [address] [place] [address] Marsha Verduzco APRN, ASSOCIATE PROGRAM MANAGER [address] [place] [address] Tachycardia (Primary Dx); Generalized anxiety disorder; Harmful pattern of substance use; Accidental drug overdose, subsequent encounter Discharge Disposition: Discharged to home or Selfcare Social History Tobacco Use Types Packs/Day Years Used Date Smoking Tobacco: Every Day Cigarettes 0.3 1.8 Started: 09/04/2023 Smokeless Tobacco: Never Alcohol Use [...] 05/06/2025 How often do you attend chur ch or yazidism services? More than 4 times per year 05/06/2025 Do you belong to any clubs o r organizations such as mandaeism groups, unions, fraternal or athletic groups, or [...] medical care, and heating? Somewhat hard 05/06/2025 [facility] - Occupational [...] any time in the past 12 m [facility], were you homeless or living in a [facility] (including now)? No 05/06/2025 [facility] Utilities Answer Date Recorded In [...] on file documented as of this encounter Last Filed Vital Signs Vital Sign Reading Time Taken Comments Blood Pressure 118/74 06/19/2025 2:36 PM CDT Pulse 92 06/19/2025 2:36 PM CDT Temperature 37.1 C (98.8 F) 06/19/2025 2:36 PM CDT Respiratory Rate 18 06/19/2025 2:36 PM CDT Oxygen Saturation 97% 06/19/2025 2:36 PM CDT Inhaled Oxygen Concentration - - Weight 67.2 kg (148 lb 1.6 oz) 06/19/2025 2:36 P M CDT Height 177.8 cm (5' 10) 06/19/2025 2:36 PM CDT Body Mass Index 21.25 06/19/2025 2:36 PM CDT documented in this encounter Patient Instructions * Patient Instructions* Marsha Verduzco APRN, CNP - 06/19/2025 3:00 PM CDT Recommend discussing lithium with your psychiatrist. documented in this encounter Progress Notes * Alaina Gerardo - 06/19/2025 3:00 PM CDT Jama Frias, 19 y.o., male is here for ED Follow-up (Er f/u for tachycardia and [facility] for over dose of over the counter medication) Medication Refills: Patient reports/denies need for medication refills. Orders Pended: no Requested Prescriptions No prescriptions requested or ordered in this encounter Home Medications Medication Sig Start Date End Date Taking? Authorizing Provider acetaminophen (TYLENOL) 500 MG Tablet Take 500 mg by mouth every 4 hours as needed for Moderate or more severe pain. Yes Evangelina Maddox MD FLUoxetine (PROzac) 20 MG Capsule Take 20 mg by mouth every evening. Patient taking differently: Take 10 mg by mouth daily. 04/15/25 Yes Evangelina Maddox MD IBUPROFEN PO Take by mouth as needed. Yes Evangelina Maddox MD MAGNESIUM PO Take by mouth daily. Yes Evangelina Maddox MD OLANZapine (ZyPREXA) 10 MG Tablet Take 10 mg by mouth nightly. Yes Evangelina Maddox MD Lyons-3 Fatty Acids (OMEGA 3 PO) Take by mouth daily. Yes Evangelina Maddox MD Vitamin D-Vitamin K (D3 + K2 PO) Take by mouth daily. Yes Evangelina Maddox MD There are no discontinued medications. I have reviewed the home medication list with the patient and have reconciled discrepancies. The list is accurate to the best of my knowledge. Smoking Status: Social History[1] Smoking Cessation Counseling Given: no Health Care Maintenance: Health Maintenance Due Topic Date Due Hepatitis C Virus (HCV) Screening Never done Human Papillomavirus (HPV) Immunization (1 - Male 3-dose series) Never done Meningococcal B Immunization (1 of 2 - Standard) Never done Pneumococcal Immunization Combined (1 of 1 - PPSV23, PCV20, or PCV21) 2024 Influenza Immunization (1) Never done SARS-COV-2 Immunization ( - season) Never done Orders Pended: no The following BPA's have been addressed with the patient today: None at [facility] time [1] Social History Tobacco Use Smoking status: Every Day Current packs/day: 0.25 Average packs/day: 0.3 packs/day for 1.8 years (0.4 ttl pk-yrs) Types: Cigarettes Start date: 09/04/2023 Smokeless tobacco: Never Vaping Use Vaping status: Every Day Substances: Nicotine, Flavoring Substance Use Topics Alcohol use: Never Drug use: Not Currently Types: Other, Psilocybin (mushrooms) * Marsha Verduzco, WALE, ASSOCIATE PROGRAM MANAGER - 06/19/2025 3:00 PM CDT Chief complaint: ED Follow-up (Er f/u for tachycardia and [facility] for over dose of over the counter medication) HPI: History of Present Illness The patient, a 19-year-old male, presents for an ER follow-up. He is accompanied by his mother. On June 12, 2025, he was admitted to the emergency department for tachycardia (heart rate 150 bpm) following the use of a glass vial containing cannabis, as confirmed by a urine test, per mother. Associated symptoms included altered mental status, diaphoresis, tremors, and facial muscle tension, without accompanying dizziness, shortness of breath, chest pain, or pressure. The patient has a history of cannabis use over the past year and synthetic psilocybin use from October 2024 to January 2025, both of which have precipitated similar adverse reactions. His mother reports detrimental effects onhis mental health and cardiac condition. He is currently under the care of psychiatrist Dr. Haddad, with a scheduled appointment on June 24, 2025. Despite these issues, he expresses intent to continue smoking marijuana and admits to alcohol consumption yesterday evening. He denies methamphetamineuse or other recreational drugs. On Monday, he was admitted to the emergency department at [facility] for an overdose involving Tylenol PM, sleep medication, and generic Robitussin, ingested in large quantities. He had approximately 13 tablets of Tylenol PM and 1-2 bottles of Robitussin. He denies suicidal ideation, asserting that his intent was to relax, although his mother suspects he was seeking a euphoric effect. Additionally, he consumed half a fifth of vodka the last night. The patient reports experiencing feelingsof loneliness but does not identify specific triggers for his substance use. He is currently on a 30-day heart monitor under the care of cardiology. He reports no current palpitations or episodes of tachycardia. He has yet to complete his echocardiogram or neuropsychological evaluation. SOCIAL HISTORY Admits to using cannabis for the past year, alcohol, and jkms-hnm-iydauso medications to jhon a high. MEDICATIONS Current: Tylenol PM Patient Care Team: Annette Alves DO as PCP - General (Family Medicine) Tracie Elkins APRN, CNP as Nurse Practitioner (Cardiology) Review of Systems Review of systems was negative,except as documented in HPI. Medications: Current Medications[1] Vitals: 06/19/25 1436 BP: 118/74 Pulse: 92 Resp: 18 Temp: 98.8 ??F (37.1 ??C) TempSrc: Temporal SpO2: 97% Weight: 148 lb 1.6 oz (67.2 kg) Height: 5' 10 (1.778 m) Body mass index is 21.25 kg/m??. Physical Exam Gen: NAD, axox3 Neuro: No tremors. CV: RRR no mrg Resp: CTAB BS wnl Abd: soft, Psych: Flat affect. Soft spoken. Poor eye contact. Past, family, surgical, and social history reviewed and updated in the chart. Results: Results - Urine test: - 06/12/25 Positive for cannabis (per mother) - 06/17/25 negative urine drug screen - ethanol <10 - acetaminophen 4 - salicylate <5 - TSH 1.228 - CMP and CBC unremarkable. - VBG unremarkable. - EKG NSR Assessment: 1. Tachycardia 2. Generalized anxiety disorder 3. Harmful pattern of substance use 4. Accidental drug overdose, subsequent encounter Assessment & Plan 1. Tachycardia: Acute. - Experienced tachycardia (HR 150 bpm) after using cannabis. Alex ER visit resulted in HR decrease to 100 bpm after 7.5 hours. EKGs and troponin levels showed no significant findings, per mother;awaiting records for review. On a 30- day heart monitor. - Advised to avoid cannabis. - Schedule echocardiogram. - Follow up with cardiology as scheduled. - VSS in office and asymptomatic. 2. Substance abuse: Chronic. - History of substance abuse: cannabis, fake mushrooms, Tylenol PM, and alcohol. Recent Tylenol PM overdose led to ER visit. Informed of risks: brain, heart, liver damage, and liver failure from excessive Tylenol. - Educated on dangers of OTC medications. - discussed local rehab centers; patient reports he has no plans to stop using marijuana, alcohol or other substances. 3. Mental health issues. - Reports feeling lonely without specific triggers for substance use. Seeing psychiatrist Dr. Haddad, with an appointment on the . - Encouraged to continue psychiatric follow-ups. - Consider local behavioral health counseling services. - Denies suicidal ideation. Follow-up - Appointment with psychiatrist Dr. Haddad on the . Plan: No orders of the defined types were placed in this encounter. Follow up: Return in about 25 days (around 07/14/2025). As scheduled or sooner for new or worsening symptoms. Time spent in open communication and establishing rapport with the patient was essential for effectively conveying assessment and plan, optimizing health outcomes, and fostering a trusting long-term provider-patient relationship. Patient verbalizes understanding and agrees with plan of care as noted above. An After Visit Summary with personalized patient education was printed and given to the patient. Documentation for this visit on 06/20/25 was completed using a template. I have seen and examined the patient. Everything documented was personally performed at this visit with the necessary additions, deletions and changes made as appropriate. [1] Current Outpatient Medications Medication Sig Dispense Refill acetaminophen (TYLENOL) 500 MG Tablet Take 500 mg by mouth every 4 hours as needed for Moderate or more severe pain. FLUoxetine (PROzac) 20 MG Capsule Take 20 mg by mouth every evening. (Patient taking differently: Take 10 mg by mouth daily.) IBUPROFEN PO Take by mouth as needed. MAGNESIUM PO Take by mouth daily. OLANZapine (ZyPREXA) 10 MG Tablet Take 10 mg by mouth nightly. Lyons-3 Fatty Acids (OMEGA 3 PO) Take by mouth daily. Vitamin D-Vitamin K (D3 + K2 PO) Take by mouth daily. No current facility-administered medications for this visit. documented in this encounter Plan of Treatment Upcoming Encounters Date Type Department Care Team (Late st Contact Info) Description 06/27/2025 11:30 AM CDT Office Visit [facility] - [facility] - [place] [address] [place] [address] Tracie Elkins APRN, ASSOCIATE PROGRAM MANAGER [address] [address] 07/14/2025 4:00 PM PIANO TECHNICIAN Office Visit [facility] - Family Medicine - [place] [address] [place] [address] Annette Alves DO 2 [facility] [address] [place] [address] 08/12/2025 1:30 PM PIANO TECHNICIAN [facility] [place] [address] [place] [address] Tracie Elkins APRN, ASSOCIATE PROGRAM MANAGER [address] [address] documented as of this encounter Visit Diagnoses Diagnosis Tachycardia- Primary Tachycardia, unspecified Generalized anxiety disorder Harmful pattern of substance use Accidental drug overdose, subsequent encounter documented in this encounter Additional Health Concerns Assessment Noted Time PHQ-9 Depression Total Score: 0 05/06/20 25 3:24 PM CDT documented as of this encounter Care Teams Day Worker Relationship Specialty Start Date End Date Annette Alves DO [address] [address] PCP - General Family Medicine 05/28/25 Tracie Elkins APRN, ASSOCIATE PROGRAM MANAGER [address] [address] Nurse Practitioner Cardiology 05/14/25 documented as of this encounter
[2025-06-20] VITALS (14 sets, daily range): BP systolic 104–151; BP diastolic 55–100; PULSE 79–111; RESP 16–20; TEMP 36.7–36.8; O2SAT 95–100
--- NOTE | 2025-06-20 18:48 | PC.NURSE ---
Pt family in room walked out and notified staff that he was fleeing the department. ED security called human resources director aware. Kiana VEGA called and notified
--- OUTSIDE RECORDS SUMMARY | 2025-06-20 19:11 | XMS_ITS | Clinical Summary ---
Author Organization [facility] [address] Address [address] [place] [address] Care Team Providers Care Staff Appraiser Name Role Phone Carmelita Barney MD Primary Care Provider [phone] Allergies No known active allergies Medications mupirocin [...] on file Legal Sex Male 4:17 PM DONATIONS ATTENDANT Gender Identity Not on file Sexual Orientation Not on file Obstetrics History Growth Chart Information Age Height Weight Pwcrvp-hac-guin th Percentile BMI Percentile Head Circum Head [...] 12/20/2023 9:1 7 AM CDT Growth Chart: [facility] (Boys, 2-2 0 Years) Plan of Treatment [...] patient's age to complete this topic Insurance [facility] Care Teams Staff Appraiser Relationship Specialty Start Date End Date Carmelita Barney MD [address] [place] [address] [address] PCP - General Pediatrics 01/21/23
--- OUTSIDE RECORDS SUMMARY | 2025-06-20 19:11 | XMS_ITS | Clinical Summary ---
Author Organization [facility] CALL [facility] ENTER Address [address] [place] [address] Phone Care Team Providers Care Devulcanizer Operator Name Role Phone Tracie Elkins APRN, CNP Unavailable [phone] Annette Alves DO Primary Care Provider [phone] Allergies No known active allergies Medications FLUoxetine (PROzac) 20 MG Capsule Take 20 mg by mouth every evening. 04/15/2025 Active OLANZapine (ZyPREXA) 10 MG Tablet Take 10 mg by mouth nightly. Active acetaminophen (TYLENOL) 500 MG Tablet Take 500 mg by mouth every 4 hours as needed for Moderate or more severe pain. Active MAGNESIUM PO Take by mouth daily. Active Howell-3 Fatty Acids (OMEGA 3 PO) Take by mouth daily. Active Vitamin D-Vitamin K (D3 + K2 PO) Take by mouth daily. Active IBUPROFEN PO Take by mouth as needed. Active Active Problems Problem Noted Date Diagnosed Date Fracture of olecranon process of ulna 06/20/2025 Harmful pattern of substance use 06/20/2025 Tachycardia 06/20/2025 Accidental drug overdose 06/20/2025 Generalized anxiety disorder 04/25/2025 Psychosis 02/22/2025 Encounters Date Type Department Care Team Description 06/19/2025 3:00 PM CDT Office Visit [facility] - Family [facility] [address] [place] [address] Marsha Verduzco APRN, CNP Tachycardia (Primary Dx); Generalized anxiety disorder; Harmful pattern of substance use; Accidental drug overdose, subsequent encounter Discharge Disposition: Discharged to home or Selfcare 06/17/2025 10:57 AM CDT - 06/17/2025 2:51 PM CDT Emergency [facility] Emergency [address] [place] [address] Destiny Crystal MD Accidental overdose, initial encounter Discharge Disposition: Discharged to home or Selfcare 06/17/2025 Travel 06/16/2025 [facility]phone [facility] [address] [place] [phone] Annette Alves, DO Appointment 05/28/2025 11:26 AM CDT Anesthesia Event [facility] Periop [address] [place] [address] Alexy Arango, MOLDING MANAGER, FISH SMOKER 05/28/2025 10:40 AM CDT - 05/28/2025 12:40 PM CDT Surgery [facility] Periop [address] [place] [address] Abdirashid Cramer MD OPEN REDUCTION INTERNAL FIXATION OF THE LEFT OLECRANON FRACTURE 05/28/2025 8:34 AM CDT - 05/28/2025 2:54 PM CDT Hospital Encounter [facility] Preop/Pacu II [address] [place] [address] Abdirashid Cramer MD Discharge Disposition: Discharged to home or Selfcare 05/26/2025 Travel 05/23/2025 3:00 PM CDT - 05/23/2025 11:59 PM CDT Hospital Encounter [facility] Diagnostic Radiology [address] [place] [address] Abdirashid Cramer MD Discharge Disposition: Discharged to home or Selfcare 05/23/2025 2:00 PM CDT - 05/23/2025 2:59 PM CDT Hospital Encounter [facility] Cardiology Services [address] [place] [address] Abdirashid Cramer MD Discharge Disposition: Discharged to home or Selfcare 05/23/2025 Transcribe Orders [facility] Patient Access Admitting [address] [place] [address] Abdirashid Cramer MD Pain in left elbow (Primary Dx); Pre-operative laboratory examination 05/22/2025 Telephone [facility] [address] [place] [phone] Provider, None Referral 05/21/2025 1:30 PM CDT - 05/21/2025 11:59 PM CDT Hospital Encounter [facility] [address] [place] [address] Tracie Elkins APRN, CNP Discharge Disposition: Discharged to home or Selfcare 05/21/2025 Travel 05/13/2025 11:00 AM CDT Office Visit [facility] [address] [place] [address] Tracie Elkins APRN, CNP Tachycardia (Primary Dx); Palpitations Discharge Disposition: Discharged to home or Selfcare 05/13/2025 Travel 05/06/2025 2:30 PM CDT Office Visit [facility] - [facility] [address] [place] [address] Carina Owusu APRN, CNP Tachycardia (Primary Dx); [...] 13 Valent 007,07/20/2006,04/20/2006,2005 Polio Vaccine,unspecified Formulation ,07/20/2006,04/20/2006,2005 TDAP Vaccine 02/21/2025 Varicella Vaccine Live 01/01/2007 Family History Medical History Relation Name Comments Hypertension Maternal Grandfather Johan High bl ood pressure/ aortic aneurysm/cause of Rheumatoid Arthritis Maternal Grandmother Larissa Cancer Mother Janie Non malignant b reast cancer Migraines Mother Janie Rashes/Skin Problems Mother Janie Eczema Relation Name Status Comments Father unknown Maternal Grandfather Johan Alive Maternal Grandmother Larissa Alive Mother Janie Alive Social History Tobacco Use Types Packs/Day [...] week 05/06/2025 How often do you attend [facility] or pentecostalism services? More than 4 times per year 05/06/2025 Do you belong to any clubs o r organizations such as advent groups, unions, fraternal or athletic groups, or [...] medical care, and heating? Somewhat hard 05/06/2025 [facility] [place] [facility] - Occupational Stress [...] any time in the past 12 m [facility], were you homeless or living in a correction (including now)? No 05/06/2025 [facility] Utilities Answer Date Recorded In [...] Mass Index 21.25 06/19/2025 2:36 PM CDT Plan of Treatment Upcoming Encounters Date Type Department Care Team (Late st Contact Info) Description 06/27/2025 11:30 AM CDT Office Visit [facility] [address] [place] [phone] Tracie Elkins, MOLDING MANAGER, SEWER REPAIRER 2 [facility] [address] [place] [address] 07/14/2025 4:00 PM DESK PENS ASSEMBLER Office Visit [facility] [address] [place] [phone] Annette Alves DO 2 [facility] [address] [place] [address] 08/12/2025 1:30 PM DESK PENS ASSEMBLER Office Visit [facility] [address] [place] [phone] Tracie Elkins, MOLDING MANAGER, SEWER REPAIRER 2 [facility] [address] [place] [address] Health Maintenance Due Date Last Done Comments Hepatitis C Virus (HCV) Screening 2005 Human Papillomavirus (HPV) Immunization (1 - Male 3-dose series) 2020 Meningococcal B Immunization (1 of 2 - Standard) 2021 Pneumococcal Immunization Combined (1 of 1 - PPSV23, PCV20, or PCV21) 2024 06/27/2007, 07/20/2006, 04/20/2006, Additional history exists Influenza Immunization (#1) 2025 SARS-COV-2 Immunization (1 [...] on patient's age to complete this topic Medical Devices Implanted Type Area Technical Proposal Writer Device Identifier Shelf Expiration Date Model / Serial / Lot Plate 89mm Ti 4 Shaft Hole Lock Variax Bone Elbow Left Olecranon Ns - [id number] Implanted:Qty: 1 on 05/28/2025 by [facility] IMPLANT N/A: [employer] [id number] / [id number] / [id number] Screw Bone T10 Full Thread 3.5mm/24mm - [id number] Implanted:Qty: 1 on 05/28/2025 by [facility]id [facility]ramer [facility] IMPLANT N/A: [employer] [id number] / [id number] / [id number] Screw Bone T10 Full Thread 3.5mm/18mm - [id number] Implanted:Qty: 1 on 05/28/2025 by [facility]ashid Cramer [facility] IMPLANT N/A: [employer] [id number] / [id number] / [id number] Screw Locking T10 Full Thread 3.5mm/20mm - [id number] Implanted:Qty: 3 on 05/28/2025 by Abdirashid Cramer MD [facility] IMPLANT N/A: [employer] [id number] / [id number] / [id number] Screw Locking T10 Full Thread 3.5mm/50mm - [id number] Implanted:Qty: 1 on 05/28/2025 by Abdirashid Cramer MD at [facility] IMPLANT N/A: [employer] [id number] / [id number] / [id number] Screw Locking T10 Full Thread 3.5mm/14mm - [id number] Implanted:Qty: 1 on 05/28/2025 by Abdirashid Cramer MD at [facility] IMPLANT N/A: [employer] [id number] / [id number] / [id number] Screw Locking T10 Full Thread 3.5mm/18mm - [id number] Implanted:Qty: 1 on 05/28/2025 by Abdirashid Cramer MD at [facility] IMPLANT N/A: [employer] [id number] / [id number] / [id number] Procedures Procedure Name Priority Date/Time Associated Diagnosis Comments EKG 12 LEAD STAT 06/17/2025 12:02 PM CDT URINALYSIS REFLEX IF INDICATED BY ABNORMAL RESULTS STAT 06/17/2025 11:59 AM CDT URINE DRUG SCREEN STAT 06/17/2025 11: 59 AM CDT CBC WITH AUTO DIFFERENTIAL STAT 06/17/2025 11:58 AM CDT BLOOD GASES, VENOUS W/ O2 SATURATION STAT 06/17/2025 11:58 AM CDT SALICYLATE LEVEL STAT 06/17/2025 11:5 8 AM CDT ACETAMINOPHEN (TYLENOL) STAT 06/17/2025 11:58 AM CDT THYROID STIMULATING HORMONE (TSH) STAT 06/17/2025 11:58 AM CDT MAGNESIUM (MG) STAT 06/17/2025 11:58 AM CDT ETHYL ALCOHOL (ETHANOL) STAT 06/17/2025 11:58 AM CDT CMP (COMPREHENSIVE METABOLIC PANEL) STAT 06/17/2025 11:58 AM CDT COMPLETE BLOOD COUNT (CBC) WITH DIFF STAT 06/17/2025 11:58 AM CDT SALICYLATE LEVEL STAT 06/17/2025 11:5 8 AM CDT EKG SCAN 06/17/2025 12:00 AM CDT XR ELBOW LIMITED STUDY 2 VIEWS LEFT Routine 05/28/2025 1:39 PM CDT XR SURGICAL EXAM Routine 05/28/2025 1:37 PM CDT NERVE BLOCK Routine 05/28/2025 1:00 PM CDT LMA Routine 05/28/2025 11:52 AM CDT OPEN RX PROX ULNA FRACTURE 05/28/2025 11:06 AM CDT LEFT OLECRANON FRACTURE Special Needs 5'10 152lbs Hx Tachycardia/palpations - 30 day monitor XR CHEST 2 VIEWS Routine 05/23/2025 3:10 [...] Pain in left elbow Pre-operative laboratory examination EVENT RECORDER, 30-DAY Routine 05/21/2025 1:57 PM CDT Tachycardia Palpitations EKG 12 LEAD Routine 05/13/2025 11:06 AM CDT Tachycardia from Last 3 Months Results * EKG 12 LEAD (06/17/2025 12:02 PM CDT) Only the most recent of3 resultswithin the time period is included. Ventricular Rate 78 BPM EXTERNAL EKG Atrial Rate 78 BPM EXTERNAL EKG P-R Interval 138 ms EXTERNAL EKG QRS Duration 84 ms EXTERNAL EKG Q-T Duration 362 ms EXTERNAL EKG QTC CALCULATION 412 ms EXTERNAL EKG P Declo 71 degrees EXTERNAL EKG R Declo 48 degrees EXTERNAL EKG T Declo 43 degrees EXTERNAL EKG 06/17/2025 12:0 2 PM CDT Impressions EXTERNAL EKG - 06/19/2025 8:39 PM CDT Normal sinus rhythm Normal ECG When compared with ECG of 23-MAY-2025 14:58, No significant change was found Confirmed by JEFFREY SOLIZ ([id number]) on 06/19/2025 8:39:34 PM Narrative Procedure Note Jeffrey Soliz MD - 06/19/2025 IMPRESSION: Normal sinus rhythm Normal ECG When compared with ECG of 23-MAY-2025 14:58, No significant change was found Confirmed by JEFFREY SOLIZ ([id number]) on 06/19/2025 8:39:34 PM us Destiny Crystal MD IMG ECG ORDERABLES Final Resu lt EXTERNAL EKG * (ABNORMAL) Urinalysis with Reflex if Indicated (06/17/2025 11:59 AM CDT) SPECIFIC GRAVITY 1.010 1.003 - 1.030 06/17/2025 12:19 PM CDT [facility] URINE PH 7.0 5.0 - 9.0 06/17/2025 12:19 PM CDT [facility] WBC ESTERASE Negative Negative 06/17/2025 12:19 PM CDT [facility] NITRITE Negative Negative 06/17/2025 12:19 PM CDT [facility] PROTEIN, RANDOM URINE 15 mg/dL(A) Negative 06/17/2025 12:19 PM CDT [facility] URINE GLUCOSE, QUAL Negative Negative 06/17/2025 12:19 PM CDT [facility] URINE KETONES Negative Negative 06/17/2025 12:19 PM CDT [facility] UROBILINOGEN Normal Normal mg/dL 06/17/2025 12:19 PM CDT [facility] URINE BLOOD Negative Negative samuel/ul 06/17/2025 12:19 PM CDT [facility] URINALYSIS COLOR Yellow 06/17/20 12:19 PM CDT [facility] URINALYSIS CLARITY Clear 06/17/2025 12:19 PM CDT [facility] Urine URINE SPECIMEN / Unknown Non-Phlebotomy Collection / Unknown 06/17/2025 11:59 AM CDT 06/17/2025 12:14 PM CDT Destiny Crystal MD URINE ORDERABLES Final Result [facility] [address] [place] [address] * Urine Drug Screen (06/17/2025 11:59 AM CDT) UR AMPHETAMINE NON DETECTED NON DETECTED 06/17/2025 1:54 PM CDT [facility] Comment: FOR MEDICAL USE ONLY. CUTOFF CONCENTRATION FOR DETECTED RESULT: AMPHETAMINE: 500 NG/ML UR BENZODIAZEPINES NON DETECTED NON DETECTED 06/17/2025 1:54 PM CDT [facility] Comment: FOR MEDICAL USE ONLY. CUTOFF CONCENTRATION FOR DETECTED RESULT: BENZODIAZAPINE: 200 NG/ML UR COCAINE METABOLITE NON DETECTED NON DETECTED 06/17/2025 1:54 PM CDT [facility] Comment: FOR MEDICAL USE ONLY. CUTOFF CONCENTRATION FOR DETECTED RESULT: COCAINE: 150 NG/ML UR OPIATES NON DETECTED NON DETECTED 06/17/2025 1:54 PM CDT [facility] Comment: FOR MEDICAL USE ONLY. CUTOFF CONCENTRATION FOR DETECTED RESULT: OPIATES: 300 NG/ML UR PHENCYCLIDINE NON DETECTED NON DETECTED 06/17/2025 1:54 PM CDT [facility] Comment: FOR MEDICAL USE ONLY. CUTOFF CONCENTRATION FOR DETECTED RESULT: PCP: 25 NG/ML UR CANNABINOID NON DETECTED NON DETECTED 06/17/2025 1:54 PM CDT [facility] Comment: FOR MEDICAL USE ONLY. CUTOFF CONCENTRATION FOR DETECTED RESULT: THC (MARIJUANA): 50 NG/ML UR BARBITURATE NON DETECTED NON DETECTED 06/17/2025 1:54 PM CDT [facility] Comment: FOR MEDICAL USE ONLY. CUTOFF CONCENTRATION FOR DETECTED RESULT: BARBITUATES: 200 NG/ML UR FENTANYL NON DETECTED NON DETECTED 06/17/2025 1:54 PM CDT [facility] Comment: FOR MEDICAL USE ONLY. CUTOFF CONCENTRATION FOR DETECTED RESULT: FENTANYL: 1.0 NG/ML Urine Non-Phlebotomy Collection / Unknown 06/17/2025 11:59 AM CDT 06/17/2025 1:19 PM CDT Destiny Crystal MD URINE ORDERABLES Final Result [facility] [address] [place] [address] * (ABNORMAL) CBC with Auto Differential (06/17/2025 11:58 AM CDT) Only the most recent of2 resultswithin the time period is included. WBC 6.53 4.00 - 12.00 10(3)/mcL 06/17/2025 12:18 PM CDT [facility] RBC 4.72 4.40 - 5.80 10(6)/mcL 06/17/2025 12:18 PM CDT [facility] HEMOGLOBIN (HGB) 14.6 13.0 - 16.5 g/dL 06/17/2025 12:18 PM CDT [facility] HEMATOCRIT (HCT) 43.0 38.0 - 50.0 % 06/17/2025 12:18 PM CDT [facility] MCV 91.1 82.0 - 96.0 fL 06/17/2025 12:18 PM CDT [facility] MCH 30.9 26.0 - 32.0 pg 06/17/2025 12:18 PM CDT [facility] MCHC 34.0 31.0 - 36.0 g/dL 06/17/2025 12:18 PM CDT [facility] PLATELET COUNT 210 140 - 440 10(3)/[facility] 06/17/2025 12:18 PM CDT [facility] RDW 11.9 11.8 - 15.5 % 06/17/2025 12:18 PM CDT [facility] MPV 9.8 8.0 - 12.6 fL 06/17/2025 12:18 PM CDT [facility] NEUTROPHILS 74.2(H) 40.0 - 68.0 % 06/17/2025 12:18 PM CDT [facility] LYMPHOCYTES 18.8(L) 19.0 - 49.0 % 06/17/2025 12:18 PM CDT [facility] MONOCYTES 5.2 3.0 - 13.0 % 06/17/2025 12:18 PM CDT [facility] EOSINOPHILS 0.8 0.0 - 8.0 % 06/17/2025 12:18 PM CDT [facility] BASOPHILS 0.5 0.0 - 1.0 % 06/17/2025 12:18 PM CDT [facility] IMMATURE GRANULOCYTE 0.5(H) 0.0 - 0.4 % 06/17/2025 12:18 PM CDT [facility] Comment:Immature Granulocyte s includes Metamyelocytes, Myelocytes, and Promyelocytes. ABSOLUTE NEUTROPHILS 4.85 1.40 - 5.30 10(3)/mcL 06/17/2025 12:18 PM CDT [facility] ABSOLUTE LYMPHOCYTES 1.23 0.90 - 3.30 10(3)/mcL 06/17/2025 12:18 PM CDT [facility] ABSOLUTE MONOCYTES 0.34 0.10 - 0.90 10(3)/[facility] 06/17/2025 12:18 PM CDT [facility] ABSOLUTE EOSINOPHIL 0.05 0.00 - 0.50 10(3)/[facility] 06/17/2025 12:18 PM CDT [facility] ABSOLUTE BASOPHILS 0.03 0.00 - 0.10 10(3)/[facility] 06/17/2025 12:18 PM CDT [facility] ABSOLUTE IMMATURE GRANULOCYTE 0.03 0.00 - 0.03 10 (3) [facility]. 06/17/2025 12:18 PM CDT [facility] NRBC PER 100 WBC 0 06/17/20 12:18 PM CDT [facility] Blood Venipuncture / Unknown 06/17/2025 11:58 AM CDT 06/17/2025 12:14 PM CDT us Destiny Crystal MD HEMATOLOGY ORDERABLES Final R esult [facility] [address] [place] [address] * (ABNORMAL) Blood Gas, Venous (06/17/2025 11:58 AM CDT) O2 STATUS 99 06/17/2025 12:23 PM CDT [facility] PH VENOUS 7.36 7.34 - 7.43 06/17/2025 12:23 PM CDT [facility] PCO2 (VENOUS) 50 41 - 51 mmHg 06/17/2025 12:23 PM CDT [facility] PO2 VENOUS 43 30 - 50 mmHg 06/17/2025 12:23 PM T [facility] O2 SAT SARAH, MEASURED 70 60 - 85 % 06/04 12:23 PM T [facility] BICARBONATE 28.9(H) 22.0 - 26.0 mmol/L 06/17/2025 12:23 PM T [facility] BASE VENOUS 3.1(H) -2.0 - 3.0 mmol/L 06/17/2025 12:23 PM T [facility] CARBOXYHEMOGLOBIN 3.7 0.0 - 5.0 % 06/17/2025 12:23 PM [facility] METHEMOGLOBIN 0.5 0.0 - 1.5 % 06/17/2025 12:23 PM [facility] SARAH Blood Gas Venipuncture / Unknown 06/17/2025 11:58 AM CDT 06/17/2025 12:14 PM CDT Narrative [facility] - 06/17/2025 12:23 PM CDT Interpretation - The usual approach to interpreting a VBG consists of using the venous measurements to estimate the corresponding arterial values, then using these estimated values for clinical decision-making exactly as if an ABG had been performed. The difference between the venous measurements and the arterial measurements depends upon the site of venous sampling and varies among laboratories. Correlation with arterial blood gases - Although arterial blood gas analysis is more accurate than venous analysis for the assessment of oxygenation, measurement of PCO2, pH, and HCO3 are similar with some minor adjustments: The central venous pH is usually 0.03 to 0.05 pH units lower than the arterial pH and the PCO2 is usually 4 to 5 mmHg higher, with little or no increase in HCO3. Mixed venous blood (ie, SvO2 drawn from a pulmonary artery catheter) gives results similar to central venous blood (ie, ScvO2 drawn from a central venous catheter). The peripheral venous pH is approximately 0.02 to 0.04 pH units lower than the arterial pH, the venous serum HCO3 concentration is approximately 1 to 2 meq/L higher, and the venous PCO2 is approximately 3 to 8 mmHg higher. There are no venous to arterial conversions for ScvO2, SvO2, or peripheral venous oxyhemoglobin saturation (PvO2). Importantly, sufficient variability between arterial and venous blood gas values may exist such that periodic correlation between arterial and venous blood gas values is always prudent. Destiny Crystal MD CHEMISTRY ORDERABLES Final Re sult Performing Organization Address [facility] Co de Phone Number [facility] [address] [place] [address] * (ABNORMAL) Acetaminophen Level (06/17/2025 11:58 AM CDT) ACETAMINOPHEN 4(L) 10 - 30 mcg/mL 06/17/2025 1:38 PM CDT [facility] Blood Venipuncture / Unknown 06/17/2025 11:58 AM CDT 06/17/2025 1:19 PM CDT Destiny Crystal MD CHEMISTRY ORDERABLES Final Re sult Performing Organization Address [facility] Co de Phone Number [facility] [address] [place] [address] * Thyroid Stimulating Hormone (TSH) (06/17/2025 11:58 AM CDT) TSH 1.228 0.300 - 5.000 mIU/L 06/17/2025 1:56 PM CDT [facility] Blood Venipuncture / Unknown 06/17/2025 11:58 AM CDT 06/17/2025 1:19 PM CDT Destiny Crystal MD CHEMISTRY ORDERABLES Final Re sult Performing Organization Address [facility] Co de Phone Number [facility] [address] [place] [address] * (ABNORMAL) Salicylate Level (06/17/2025 11:58 AM CDT) Only the most recent of2 resultswithin the time period is included. SALICYLATE <5.0(L) 15.0 - 30.0 mg/dL 06/17/2025 12:35 PM CDT [facility] Blood Venipuncture / Unknown 06/17/2025 11:58 AM CDT 06/17/2025 12:14 PM CDT Destiny Crystal MD CHEMISTRY ORDERABLES Final Re sult Performing Organization Address City/[facility]/ZIP Co de Phone Number [facility] [address] [place] [address] * Magnesium (MG) (06/17/2025 11:58 AM CDT) MAGNESIUM 2.1 1.6 - 2.6 mg/dL 06/17/2025 1:38 PM CDT [facility] Blood Venipuncture / Unknown 06/17/2025 11:58 AM CDT 06/17/2025 1:19 PM CDT Destiny Crystal MD CHEMISTRY ORDERABLES Final Re sult Performing Organization Address [facility] Co de Phone Number [facility] [address] [place] [address] * ETOH Level (06/17/2025 11:58 AM CDT) ETHANOL <10 <10 mg/dL 06/17/2025 1:3 8 PM CDT [facility] Blood Venipuncture / Unknown 06/17/2025 11:58 AM CDT 06/17/2025 1:19 PM CDT Narrative [facility] - 06/17/2025 1:38 PM CDT FOR MEDICAL USE ONLY Destiny Crystal MD CHEMISTRY ORDERABLES Final Re sult Performing Organization Address City/[facility]/ZIP Co de Phone Number [facility] [address] [place] [address] * CMP (Comprehensive Metabolic Panel) (06/17/2025 11:58 AM CDT) Only the most recent of2 resultswithin the time period is included. SODIUM 139 136 - 145 mmol/L 06/17/2025 1:38 PM CDT [facility] POTASSIUM 4.3 3.5 - 5.1 mmol/L 06/17/2025 1:38 PM CDT [facility] CHLORIDE 104 98 - 107 mmol/L 06/17/2025 1:38 PM CDT [facility] CO2, VENOUS 26 22 - 30 mmol/L 06/17/2025 1:38 PM CDT [facility] ANION GAP 13.3 <18.0 mmol/L 06/17/2025 1:38 PM CDT [facility] GLUCOSE 93 70 - 99 mg/dL 06/17/2025 1:38 PM CDT [facility] BUN 11 9 - 21 mg/dL 06/17/2025 1:38 PM CDT [facility] CREATININE, BLOOD 0.86 0.70 - 1.30 mg/dL 06/17/2025 1:38 PM CDT [facility] BUN/CREATININE RATIO 13 12 - 20 ratio 06/17/2025 1:38 PM CDT [facility] TOTAL PROTEIN 6.9 6.0 - 8.0 g/dL 06/17/2025 1:38 PM CDT [facility] ALBUMIN 4.7 3.5 - 5.0 g/dL 06/17/2025 1:38 PM CDT [facility] A/G RATIO 2.1 1.0 - 2.2 06/17/2025 1:38 PM CDT [facility] CALCIUM 9.1 8.7 - 10.5 mg/dL 06/17/2025 1:38 PM CDT [facility] T BILI 0.6 0.2 - 1.2 mg/dL 06/17/2025 1:38 PM CDT [facility] SGOT (AST) 24 <43 U/L 06/17/2025 1:38 PM CDT [facility] SGPT (ALT) 28 <56 U/L 06/17/2025 1:38 PM CDT [facility] ALKALINE PHOSPHATASE 92 <750 U/L 06/17/2025 1:38 PM CDT [facility] GFR, ESTIMATED >60 >=60 06/17/2025 1:38 PM CDT [facility] Comment: Creatinine Clearance is the preferred criteria for selecting drug dose adjustments in renally impaired patients. The GFR is provided as additional pertinent clinical information. GFR is reported in mL/min/1.73 sq m. Calculation based on the 2020 Chronic Kidney Disease Epidemiology Collaboration (CKD-EPI) equation refit without adjustment for race. UNABLE TO CALCULATE GFR, EST. 1:38 PM CDT [facility] Comment: Creatinine Clearance is the preferred criteria for selecting drug dose adjustments in renally impaired patients. The GFR is provided as additional pertinent clinical information. GFR is reported in mL/min/1.73 sq m. Calculation based on the 2009 Chronic Kidney Disease Epidemiology Collaboration (CKD-EPI). GFR, EST. NONAFRICAN 06/17/2025 1:38 PM CDT [facility] Comment: Creatinine Clearance is the preferred criteria for selecting drug dose adjustments in renally impaired patients. The GFR is provided as additional pertinent clinical information. GFR is reported in mL/min/1.73 sq m. Calculation based on the 2009 Chronic Kidney Disease Epidemiology Collaboration (CKD-EPI). Blood Venipuncture / Unknown 06/17/2025 11:58 AM CDT 06/17/2025 1:19 PM CDT us Destiny Crystal MD CHEMISTRY ORDERABLES Final Re sult [facility] [address] [place] [address] * EKG SCAN (06/17/2025 12:00 AM CDT) 06/17/2025 us Provider Scan IMG ECG ORDERABLES Final Result RESULTING AGENCY * XR ELBOW LIMITED STUDY 2 VIEWS LEFT (05/28/2025 1:39 PM CDT) Anatomical Region Laterality Modality UPPER EXTREMITY, elbow Left Radio Flu oroscopy 05/28/2025 1:39 PM CDT Narrative 05/28/2025 3:48 PM CDT DICTATING PHYSICIAN: Steven Rubalcava M.D. EXAM: XR ELBOW LIMITED STUDY 2 VIEWS LEFT 05/28/2025 1:39 PM HISTORY: Left elbow pain. COMPARISON: None. FINDINGS: 7 fluoroscopic spot images were obtained. The images demonstrate ORIF of the proximal left ulna. Please see the dedicated operative report for further details. Fluoroscopy time: One minute, 28 seconds. Procedure Note Steven Rubalcava MD - 05/28/2025 DICTATING PHYSICIAN: Steven Rubalcava M.D. EXAM: XR ELBOW LIMITED STUDY 2 VIEWS LEFT 05/28/2025 1:39 PM HISTORY: Left elbow pain. COMPARISON: None. FINDINGS: 7 fluoroscopic spot images were obtained. The images demonstrate ORIF ofthe proximal left ulna. Please see the dedicated operative report forfurther details. Fluoroscopy time: One minute, 28 seconds. us Abdirashid Cramer MD IMG DIAGNOSTIC ORDERABLES Final Result * XR SURGICAL EXAM (05/28/2025 1:37 PM CDT) us Abdirashid Cramer MD IMG DIAGNOSTIC ORDERABLES Final Result * Nerve Block (05/28/2025 1:00 PM CDT) Narrative Rishi Garcia APRN, CRNA - 05/28/2025 1:00 PM CDT Rishi Garcia APRN, CRNA 05/28/2025 1:01 PM Nerve Block Staffing Performed: resident/FISH SMOKER Resident/FISH SMOKER: Rishi Garcia APRN, CRNA Performed by: Rishi Garcia APRN, CRNA Authorized by: Alexy Arango APRN, CRNA Patient Location: Pre-op, Prep: Surgical mask, surgical hat, sterile gloves and Chloraprep Laterality: left, Block Perfomed: Axillary Reason for block: at surgeon's request and post-op pain management Neuraxial/Peripheral Nerve Block requested for post-operative analgesia by: Abdirashid Cramer MD [place] Injection Technique: Single-shot Needle type: Stimuplex Needle Gauge: 22 G Needle length: 4 in , Preanesthetic Checklist Completed: site marked, surgical consent, timeout performed, risks and benefits discussed, at surgeon's request and post-op pain management, Procedures Procedures: ultrasound guided Number of attempts: 1 , Narrative Start time: 05/28/2025 11:04 AM End time: 05/28/2025 11:15 AM Injection made incrementally with aspirations every 5 mL. no ultrasound evidence of intravascular and/or intraneural injection post-procedure vital signs reviewed and stable Injection Pressure normal. Yes Performed by: resident/FISH SMOKER us Alexy Arango APRN, CRNA ANESTHESIA ORDERABLE S Final Result * LMA (05/28/2025 11:52 AM CDT) Narrative Alexy Arango APRN, CRNA - 05/28/2025 11:52 AM CDT Alexy Arango APRN, CRNA 05/28/2025 11:53 AM LMA Staffing Performed: resident/FISH SMOKER Resident/FISH SMOKER: Alexy Arango APRN, CRNA Performed by: David Parker Authorized by: Alexy Arango APRN, CRNA Airway Details Overall Difficulty: Easy Preoxygenated: Yes Ease of Mask Ventilation: Not attempted LMA Type: Disposable LMA Size: 4 Adequate seal established: Yes LMA placement confirmed by: bilateral breath sounds, CO2 detection Atraumatic LMA Placement us Alexy Arango APRN, CRNA ANESTHESIA ORDERABLE S Final Result * XR CHEST 2 VIEWS (05/23/2025 3:10 PM CDT) Anatomical Region Laterality Modality Chest N/A Digital Radiogra phy 05/23/2025 3:10 PM CDT Impressions 05/23/2025 3:27 PM CDT IMPRESSION: Chest x-ray is within normal limits with no radiographic evidence of acute cardiopulmonary disease. Narrative 05/23/2025 3:27 PM CDT XR CHEST 2 VIEWS : 05/23/2025 3:10 PM DICTATING PHYSICIAN: BHAKTI MANCIA [facility]. HISTORY: Preoperative evaluation. ADDITIONAL TECHNOLOGIST [...] 05/23/2025 3:10 PM DICTATING PHYSICIAN: BHAKTI MANCIA [facility]. HISTORY: Preoperative evaluation. ADDITIONAL TECHNOLOGIST HISTORY: [...] Cramer MD IMG DIAGNOSTIC ORDERABLES Final Result from Last 3 Months Insurance MEDICAID [place] Advance Directives Documents on File Type Date Recorded Patient Lopper Expl anation Power of Data Review Specialist for Health Care 05/06/2025 4:21 PM POA Care Teams Devulcanizer Operator Relationship Specialty Start Date End Date Annette Alves DO [address] [facility] [place] [address] PCP - General Family Medicine 05/28/25 Tracie Elkins APRN, SEWER REPAIRER [address] [facility] [address] [place] [address] Nurse Practitioner Cardiology 05/14/25
--- NOTE | 2025-06-20 19:26 | ECG_ITS ---
Test Date: 2025-06-20 19:58:38 Measurements Intervals [place] Rate: 102 P: 52 CO: 129 QRS: 72 QRSD: 90 T: 67 QT: 320 QTc: 417 Interpretive Statements SINUS TACHYCARDIA BASELINE ARTIFACT- I, III, AVR, AVL, V4-V6 BORDERLINE ECG Compared to ECG 06/12/2025 21:23:24 HEART RATE HAS INCREASED Electronically Signed On 06-20-2025 20:43:17 CDT by Camden Jarvis D.O.
--- NOTE | 2025-06-20 19:28 | PC.NURSE ---
Patient ran out of room and out of hospital. Multiple staff calling his name and trying to bring patient back into room. PD called by Charge Nurse.
[2025-06-20] MEDS: diazePAM INJ (*CRX) 10 MG/2 ML SYRINGE IM (19:41)
--- NOTE | 2025-06-20 19:50 | PC.NURSE ---
Patient found by PD and brought back to room. RN collecting labs and urine.
--- NOTE | 2025-06-20 20:02 | ED_ITS ---
HPI - General Adult General Chief complaint: Psychiatric Symptoms Stated complaint: tachycardia Time Seen by Provider: 06/20/25 19:06 History of Present Illness HPI narrative: 19-year-old male with history of psychosis and chronic psychiatric illness on multiple antipsychotic medications. Patient presents via walk-in triage with his family members for concerns of very bizarre behavior and acute psychosis likely decompensated from psychiatric illness combined with drug use according to the family members. Family states he has not had any new changes to his medications and antipsychotics and has been stable on his dosages although for last few months has been exhibiting clear outbursts of psychosis, vomit aggression, bizarre behavior, inappropriate laughing, flat affect. Patient relapsed on drug use and recently admitted to using marijuana and resin which is family states is not helping and usually causes symptoms like this. He also admits to drinking significant alcohol today. Recently broke his left elbow is in a cast. Has recently had a 30 day Holter monitor completed. Patient appears to be in decompensated psychosis at this time, inappropriate affect, bizarre behavior and noncompliant with being evaluated. After speaking with family members including both sisters and mother at this time who wanted him psychiatrically evaluated and potentially hospitalized. Patient did run out of the emergency department and police were called retrieve him from the streets. Patient placed into room 8 with bedside sitter and given chemical restraints at this time. Related Data Home Medications ?Medication ?Instructions ?Recorded ?Confirmed ?Last Taken ?Type fluoxetine 10 mg capsule (Prozac) 10 mg PO DAILY 06/2006/20/25 06/19/25 History haloperidol 5 mg tablet mg 06/20/25 06/15/25 Histor y olanzapine 15 mg-samidorphan 10 mg tablet PO 06/20/25 06/19/25 History tablet (Lybalvi) Allergies Allergy/AdvReac Type Severity Reaction Status Date / Time No Known Allergies Allergy Mild Verified 06/20/25 21:27 Review of Systems 2 Review of Systems: As reviewed above in HPI Exam 2 Narrative: GENERAL: [Well-appearing, well-nourished, and in no acute distress.] HEAD: [Normocephalic, atraumatic.] EYES: [PERRLA and EOMI.] ENT: Nares clear, no rhinorrhea or epistaxis. Mucous membranes moist. NECK: Supple. CHEST: [Clear to auscultation. No respiratory distress.] HEART: [Regular rate and rhythm]. No murmur heard. [Normal peripheral pulses.] ABDOMEN: [Soft, nondistended], [nontender], [No rigidity or guarding] EXTREMITIES: Normal range of motion. [No edema.] SKIN: Warm, dry, no rash. NEURO: [No focal deficits]. Alert and oriented [x3.] PSYCH: Flat affect, inappropriate mood and laughing intermittently throughout the encounter, denies suicidal ideation or self-harm. Exhibiting negative symptoms of schizophrenia or psychosis. Course Vital Signs Vital signs: Vital Signs Temperature 36.8 C 06/20/25 18:14 Pulse Rate 110 H 06/20/25 18:14 Respiratory Rate 20 06/20/25 18:14 Blood Pressure 151/100 H 06/20/25 18:14 Pulse Oximetry 100 06/20/25 18:14 Oxygen Delivery Room Air 06/20/25 18:14 Temperature 36.7 C 06/20/25 21:09 Pulse Rate 82 06/20/25 23:09 Respiratory Rate 20 06/20/25 23:09 Blood Pressure 110/62 06/20/25 23:09 Pulse Oximetry 98 06/20/25 23:09 Oxygen Delivery Room Air 06/20/25 18:14 Medical Decision Making MDM Narrative Medical decision making narrative: 19-year-old male with history of psychosis and chronic psychiatric illness on multiple antipsychotic medications. Patient presents via walk-in triage with his family members for concerns of very bizarre behavior and acute psychosis likely decompensated from psychiatric illness combined with drug use according to the family members. Family states he has not had any new changes to his medications and antipsychotics and has been stable on his dosages although for last few months has been exhibiting clear outbursts of psychosis, vomit aggression, bizarre behavior, inappropriate laughing, flat affect. Patient relapsed on drug use and recently admitted to using marijuana and resin which is family states is not helping and usually causes symptoms like this. He also admits to drinking significant alcohol today. Recently broke his left elbow is in a cast. Has recently had a 30 day Holter monitor completed. Patient appears to be in decompensated psychosis at this time, inappropriate affect, bizarre behavior and noncompliant with being evaluated. After speaking with family members including both sisters and mother at this time who wanted him psychiatrically evaluated and potentially hospitalized. Patient did run out of the emergency department and police were called retrieve him from the streets. Patient placed into room 8 with bedside sitter and given chemical restraints at this time. Patient's change in degree describes. Psychiatric clearance laboratory studies obtained. EKG obtained. He was given 10 mg of IM diazepam with good effect. Patient's labs are unremarkable. UDS positive for cannabis ethanol level negative. Workup unremarkable. Vital signs stable and normalized. Calm down after Valium. Sitter at bedside. Patient medically cleared for psychiatric evaluation and transportation as needed. After crisis team has evaluated the patient and discussions with the patient and family they have deemed him reasonable for safety plan and discharge home with outpatient follow-up. Patient remains hemodynamically stable. Calm and cooperative. Did not require any additional medications while here in the emergency department. Will be discharged home with family members and safety planning. Medical Records Medical records reviewed: Yes I reviewed the external patient's medical records. Vital Signs Vital Signs: Vital Signs Temperature 36.8 C 06/20/25 18:14 Pulse Rate 110 H 06/20/25 18:14 Respiratory Rate 20 06/20/25 18:14 Blood Pressure 151/100 H 06/20/25 18:14 Pulse Oximetry 100 06/20/25 18:14 Oxygen Delivery Room Air 06/20/25 18:14 Temperature 36.7 C 06/20/25 21:09 Pulse Rate 82 06/20/25 23:09 Respiratory Rate 20 06/20/25 23:09 Blood Pressure 110/62 06/20/25 23:09 Pulse Oximetry 98 06/20/25 23:09 Oxygen Delivery Room Air 06/20/25 18:14 Lab Data Lab results reviewed: Yes I reviewed the patient's lab results. 06/20/25 19:49 06/20/25 19:49 Labs: Lab Results 06/20/25 06/20/25 Range/Units 19:49 21:04 WBC 8.5 (4.5-10.0) K/mm3 RBC 4.74 (4.6-6.20) M/mm3 Hgb 14.3 (14.0-18.0) g/dL Hct 41.9 L (42.0-52.0) % MCV 88.4 (80-100) fl MCH 30.2 (26-34) pg MCHC 34.1 (32-36) g/dl RDW 12.1 (11.5-14.5) % Plt Count 248 (150-375) k/mm3 MPV 9.6 (7.4-10.4) fl Immature Gran % (Auto) 0.4 (0-0.5) % Neut % (Auto) 70.1 (45.5-73.1) % Lymph % (Auto) 21.9 (18.3-44.2) % [place] % (Auto) 6.6 (2.6-8.5) % Eos % (Auto) 0.5 (0-4.4) % Baso % (Auto) 0.5 (0.2-1.2) % Lymph # (Auto) 1.86 (0.9-3.2) K/mm3 [place] # (Auto) 0.6 (0.1-0.6) K/mm3 Eos # (Auto) 0.0 (0-0.3) K/mm3 Baso # (Auto) 0.0 (0.0-0.1) K/mm3 Abs Immat Gran (auto) 0.03 (0.00-0.031) K/mm3 Absolute Neuts (auto) 6.0 (1.3-6.7) K/mm3 Absolute Nucleated RBC 0.000 (0.0-0.012) K/mm3 Nucleated RBC % 0.0 (0.0-0.2) % Sodium 140 (134-143) mmol/L Potassium 3.6 (3.4-5.0) mmol/L Chloride 104 (98-107) mmol/L Carbon Dioxide 23 (22-30) mmol/L Anion Gap 13 H (4-12) mmol/L BUN 16 (8-21) mg/dL Creatinine 0.85 (0.7-1.3) mg/dL Estim Creat Clear Calc 114 ml/min Estimated GFR > 60 (59 - ) Glucose 104 (65-110) mg/dL Calcium 9.3 (8.9-10.7) mg/dL Total Bilirubin 0.5 (0.2-1.3) mg/dL AST 33 (17-59) U/L ALT 33 (6-50) U/L Alkaline Phosphatase 91 (58-237) U/L Total Protein 7.7 (6.3-8.6) g/dL Albumin 5.1 (3.7-5.6) g/dL TSH (Reflex) 2.370 (0.465-4.68) uIU/mL Urine Color Dark yellow (Yellow) Urine Appearance Clear (Clear) Urine pH 7.5 (5.0-9.0) Ur Specific [place] 1.022 (1.001-1.035) Urine Protein Trace (Negative) mg/dL Urine Glucose (UA) Negative (Negative) mg/dL Urine Ketones Negative (Negative) mg/dL Ur Blood (Man) Negative (Negative) Urine Nitrate Negative (Negative) Urine Bilirubin Negative (Negative) Urine Urobilinogen 0.2 (<2.0) mg/dL Leukocyte Esterase Rfl Negative (Negative) REYNALDO/UL Urine RBC 0-2 (0-2) /hpf Urine WBC 0-5 (0-3) /hpf Ur Squamous Epith Cells None seen (Few) /hpf Urine Bacteria None seen /hpf Urine Casts 0-2 Urine Opiates Screen Negative (Negative) Urine Methadone Screen Negative (Negative) Ur Barbiturates Screen Negative (Negative) Ur Phencyclidine Scrn Negative (Negative) Ur Amphetamine Screen Negative (Negative) U Benzodiazepines Scrn Negative (Negative) Urine Cocaine Screen Negative (Negative) U Cannabinoids Screen Positive A (Negative) Ethyl Alcohol < 10 (<10) mg/dL Influenza A (RT-PCR) Negative (Negative) Influenza B (RT-PCR) Negative (Negative) RSV (RT-PCR) Negative (Negative) SARS-CoV-2 RNA (RT-PCR) Negative (Negative) Critical Care Time Critical Care Time Critical Care Time: Yes Total Critical Care Time: 35 Restraint Face to Face Eval ED Reason for Restraint Aggressive/Violent Evaluation Findings Date Seen by EDP: 06/20/25 Time Seen by EDP: 19:30 Pt's immediate situation:: Patient noncompliant with treatment regimen, acutely decompensated from a psychiatric perspective versus drug-induced psychosis. Running away from staff and posing a danger to himself by running into traffic on the street. Unable to be verbally de-escalated. Intramuscular Valium given. Pt's reaction to intervention:: Calm down and resting comfortably in the stretcher. Pt's med/behavioral condition:: Decompensated psychiatric illness versus drug-induced psychosis. Restraint or Seclusion Need Need to continue or terminate:: Patient calm down does not need further sedation or seclusion/restraint. Discharge Plan Discharge Clinical Impression: Psychosis, Marijuana use Patient Disposition: Home Condition: Stable Instructions: Antibiotic Form Additional Instructions: Follow-up with your Psychiatry team on outpatient basis. Return with any new or urgent/emergent concerns. Refrain from substance use such as drinking alcohol or using marijuana. Patient Language: Spanish Prescriptions: No Action haloperidol 5 mg tablet Lybalvi 15-10 mg tablet PO fluoxetine [Prozac] 10 mg capsule 10 mg PO DAILY Follow-up/Referrals: Joselyn,Annette Zavala DO [Primary Care Provider, Unknown] Time of Disposition: 00:21
[2025-06-20 20:03] LABS: Add Urine Microscopic? YES; Appearance Urine Clear (Clear); Glucose Urine UA Negative (Negative); Leukocyte Esterase Ur Negative LEU/UL (Negative); Nitrate Urine Negative (Negative); Non Pathogenic Casts 0-2; Specific Grav Ur 1.022 (1.001-1.035)
[2025-06-20 20:05] LABS: Hematocrit 41.9 % (42.0-52.0); Hemoglobin 14.3 g/dL (14.0-18.0); Immature Granulocyte Percent A 0.4 % (0-0.5); Lymphocytes Absolute Auto 1.86 K/mm3 (0.9-3.2); Mean Corpuscular HGB Conc 34.1 g/dl (32-36); Mean Corpuscular Hemoglobin 30.2 pg (26-34); Mean Corpuscular Volume 88.4 fl (80-100); Nucleated Red Blood Cells Absolute Auto 0.000 K/mm3 (0.0-0.012); Nucleated Red Blood Cells Perc 0.0 % (0.0-0.2); Platelet Count Result 248 k/mm3 (150-375); Red Blood Count 4.74 M/mm3 (4.6-6.20); White Blood Count 8.5 K/mm3 (4.5-10.0)
[2025-06-20 20:16] LABS: Alanine Aminotransferase 33 U/L (6-50); Albumin Level 5.1 g/dL (3.7-5.6); Alkaline Phosphatase 91 U/L (58-237); Anion Gap 13 mmol/L (4-12); Aspartate Amino Transferase 33 U/L (17-59); Bilirubin,Total 0.5 mg/dL (0.2-1.3); Blood Urea Nitrogen 16 mg/dL (8-21); Calcium 9.3 mg/dL (8.9-10.7); Carbon Dioxide 23 mmol/L (22-30); Chloride 104 mmol/L (98-107); Estimated CRCL calculation 114 ml/min; Estimated Glomerular Filt Rate > 60; Glucose 104 mg/dL (65-110); Potassium 3.6 mmol/L (3.4-5.0); Sodium 140 mmol/L (134-143); Total Protein 7.7 g/dL (6.3-8.6)
[2025-06-20 20:17] LABS: Cannabinoid Screen Urine Positive (Negative)
[2025-06-20 20:46] LABS: Thyroid Stimulating Hormone Reflex 2.370 uIU/mL (0.465-4.68)
--- NOTE | 2025-06-20 21:39 | PC.NURSE ---
RN called [facility] about consult for patient. [employer] stated a sales representative aircraft will be here within 2 hours. Patient, family and MD notified.
--- NOTE | 2025-06-20 21:46 | PC.NURSE ---
[employer] rep called RN and started they will be here within an hour to assess patient.
[2025-06-20 21:47] LABS: Influenza A QL RT-PCR Negative (Negative); Influenza B QL RT-PCR Negative (Negative); RSV RNA, RT-PCR Negative (Negative); SARS-CoV-2 RNA PCR Negative (Negative)
--- NOTE | 2025-06-20 22:57 | PC.NURSE ---
[facility] in room now speaking with patient and family.
--- NOTE | 2025-06-21 00:10 | PC.NURSE ---
RN called [facility] about plan of care of patient. [facility] Rep stated they will call back shortly.
--- NOTE | 2025-06-21 00:17 | PC.NURSE ---
RN recieved a call from [facility], Patient received a safety plan and will be discharging home.
--- NOTE | 2025-06-21 00:44 | PC.NURSE ---
Mother of patient asking for resources for homeless shelters. RN gave mother a recourse sheet with shelters and phone numbers to call.
== END 2025-06-21 00:44 | disposition home or self-care (01) ==
PROVIDERS: Emergency Provider Student in an Organized Health Care Education/Training Program; PCP Student in an Organized Health Care Education/Training Program
DX: F23 Brief psychotic disorder (principal); F12.90 Cannabis use, unspecified, uncomplicated; Z11.52 Encounter for screening for COVID-19; F99 Mental disorder, not otherwise specified; Z79.899 Other long term (current) drug therapy; R00.0 Tachycardia, unspecified
CPT/HCPCS: 36415; 80053; 80307; 81001; 82077; 84443; 85025; 87637; 93005; 96372; 99284; J3360